=== PATIENT | female | born 1975 | race Caucasian/White ===

== ENCOUNTER 2020-09-13 08:50 | Emergency (ER) | payer OTHER, SELFPAY ==
--- NOTE | ~2020-09-13 | XR_ITS ---
EXAMINATION: XR elbow RT min 3V DATE: 09/13/2020 10:08 INDICATION: Posttraumatic right elbow pain TECHNIQUE: Anteroposterior, two oblique and lateral views of the right elbow were obtained. COMPARISON: None. FINDINGS: Alignment is normal. No fracture or joint effusion. Mild osteoarthritis at the right elbow with sligh t nonuniform joint space narrowing and tiny marginal osteophytes. Soft tissues are unremarkable. IMPRESSION: 1. No right elbow joint effusion or acute osseous abnormality. Reviewed, dictated and finalized at location A.
[2020-09-13 08:55] VITALS: BP 144/98; PULSE 72; RESP 18; TEMP 36.7; O2SAT 100
[2020-09-13 08:59] VITALS: BP 138/95; PULSE 100; RESP 16; O2SAT 99
[2020-09-13] MEDS: HYDROcodone/acetaminophen (*CRX) 5-325 MG TABLET 1 TAB PO (10:08)
--- NOTE | 2020-09-13 10:40 | ED.GENADULT ---
HPI - General Adult General Chief complaint: Extremity Injury, Upper Stated complaint: elbow injury Time Seen by Provider: 09/13/20 09:01 Source: patient and RN notes reviewed Mode of arrival: ambulatory Limitations: no limitations History of Present Illness HPI narrative: Patient is a 44-year-old female who presents to emergency department for evaluation of right elbow injury she struck the elbow this morning on a [place] countertop noting aching pain to the lateral aspect that radiates down the arm patient has not taken anything for her symptoms denies other injuries or complaints Related Data Allergies Allergy/AdvReac Type Severity Reaction Status Date / Time ioversol Allergy Unknown Unknown Verified 09/13/20 09:02 Penicillins Allergy Unknown Unknown Verified 09/13/20 09:02 Sulfa (Sulfonamide Allergy Unknown Numbness Verified 09/13/20 09:02 Antibiotics) SHELLFISH Allergy Intermediate NUASEA,ITCH Uncoded 06/10/18 12:42 ING Contrast Media Allergy Mild XRAY DYE Uncoded 06/10/18 12:42 Review of Systems Review of Systems: All systems reviewed & are unremarkable except as noted in HPI and below PMFSH Past Medical History Medical History (Updated 09/13/20 @ 10:43 by Juan José Hoover PA-C) Narcolepsy Family History Family History (Updated 06/17/18 @ 14:59 by DOCTOR UNKNOWN) Grandparent Family history of thyroid disease Hypertension Family history of Alzheimer's disease Father Hypertension Other Carcinoma of colon Diabetes mellitus Family history of arthritis Family history of atrial fibrillation Family history of cardiovascular disease Family history of kidney disease Family history of lung disease Family history of mental disorder Family history of osteoporosis Social History Social History Smoking status: Never smoker Alcohol intake: current Exam Narrative: Exam Narrative: GENERAL: Well-appearing, well-nourished, and in no acute distress. HEAD: Normocephalic, atraumatic. EYES: PERRLA and EOMI. ENT: Nares clear, no rhinorrhea or epistaxis. Mucous membranes moist. CHEST: Clear to auscultation. No respiratory distress. No wheezes rales or rhonchi HEART: Regular rate and rhythm. No murmur heard. Normal peripheral pulses. EXTREMITIES: Tenderness of the lateral aspect of the right elbow no deformity noted SKIN: Warm, dry, no rash. NEURO: No focal deficits. Alert and oriented x3. Neurovascularly intact PSYCH: Normal mood and affect. Course Course Emergency Course: Patient in the room no distress aware of case findings treatment plan and diagnosis felt appropriate for outpatient reevaluation agreeing to follow-up as instructed Vital Signs Vital signs: Vital Signs Temperature 98.1 F 09/13/20 08:55 Pulse Rate 72 09/13/20 08:55 Respiratory Rate 18 09/13/20 08:55 Blood Pressure 144/98 H 09/13/20 08:55 Pulse Oximetry 100 09/13/20 08:55 Temperature 98.1 F 09/13/20 08:55 Pulse Rate 100 09/13/20 08:59 Respiratory Rate 16 09/13/20 08:59 Blood Pressure 138/95 H 09/13/20 08:59 Pulse Oximetry 99 09/13/20 08:59 Medical Decision Making MDM Narrative Medical decision making narrative: Patients injury or pain is consistent with musculoskeletal etiology. No signs of neurological or vascular compromise on exam. Compartments and tisues are soft without signs of compartment syndrome. Pain is felt appropriate for further evaluation on an outpatient basis. Vital Signs Vital Signs: Vital Signs Temperature 98.1 F 09/13/20 08:55 Pulse Rate 72 09/13/20 08:55 Respiratory Rate 18 09/13/20 08:55 Blood Pressure 144/98 H 09/13/20 08:55 Pulse Oximetry 100 09/13/20 08:55 Temperature 98.1 F 09/13/20 08:55 Pulse Rate 100 09/13/20 08:59 Respiratory Rate 16 09/13/20 08:59 Blood Pressure 138/95 H 09/13/20 08:59 Pulse Oximetry 99 09/13/20 08:59 Imaging Data Radiologist's imp
[2020-09-13 11:03] VITALS: BP 151/109; PULSE 83; RESP 16; O2SAT 99
== END 2020-09-13 11:02 | disposition home or self-care (01) ==
PROVIDERS: Emergency Provider Emergency Medicine; PCP Internal Medicine
DX: S59.901A Unspecified injury of right elbow, initial encounter (principal); W22.09XA Striking against other stationary object, initial encounter
CPT/HCPCS: 73080; 99283; A9270

== ENCOUNTER 2021-01-12 15:57 | Outpatient (CLI) | payer OTHER, SELFPAY ==
--- NOTE | ~2021-01-12 | MM_ITS ---
EXAMINATION: MM screening [facility] BI w rafael HISTORY: Screening mammogram TECHNIQUE: Craniocaudal and mediolateral oblique 3-D tomosynthesis images were obtained and synthetic 2-D images were generated. CAD analysis was submitted and interpreted. COMPARISON: 11/18/2015 bilateral digital screening mammogram BREAST PARENCHYMAL COMPOSITION: There are scattered areas of fibroglandular density. FINDINGS: There is no evidence of suspicious mass, calcification, or architectural distortion to sugg est malignancy in either breast. There has been no suspicious interval change. IMPRESSION: 1. No mammographic evidence of malignancy. 2. Recommend routine screening mammography in one year. BI-RADS Category 1: Negative Reviewed, dictated and finalized at location A.
== END 2021-01-12 15:58 | disposition home or self-care (01) ==
LOC: ANHIMG 15:58
PROVIDERS: PCP Internal Medicine; Visit Provider Obstetrics & Gynecology
DX: Z12.31 Encounter for screening mammogram for malignant neoplasm of breast (principal)
CPT/HCPCS: 77063; 77067

== ENCOUNTER 2021-04-09 14:45 | Outpatient (CLI) | payer OTHER, SELFPAY ==
[2021-04-09 15:11] LABS: Hematocrit 43.5 % (37.0-47.0); Hemoglobin 14.8 g/dL (12.0-15.0)
== END 2021-04-09 14:46 | disposition home or self-care (01) ==
LOC: ANHSURGERY 14:48
PROVIDERS: Anesthesiology; PCP Internal Medicine; Visit Provider Podiatrist Foot & Ankle Surgery
DX: D64.9 Anemia, unspecified (principal); Z01.818 Encounter for other preprocedural examination
CPT/HCPCS: 36415; 85014; 85018

== ENCOUNTER 2021-04-13 00:55 | Day surgery (SDC) | payer OTHER, SELFPAY ==
[2021-04-09 12:00] VITALS: BMI 32.5
--- NOTE | 2021-04-09 12:12 | PC.NURSE ---
Report to the Outpatient Waiting Room, entrance under the green pavilion located off [address], at time 6:00 on date 04/13/21. OR Time: 7:30. - You will be asked a series of questions to screen for COVID 19 for your protection. - A mask is required within the hospital. - No visitors are allowed at this time. Preoperative COVID Testing Requirements: No COVID Test needed if: (proof is required; if not received patient will have Rapid Test prior to entry) - Patient has received COVID Vaccine at least 14 days prior to procedure date or - Patient has positive COVID test result within last 90 days of surgery date. COVID Test needed if above criteria is not met Patients may have clear liquids (water, carbonated beverages, clear teas, apple juice) until 3 hours prior to surgery (4:30) with a maximum of 20 ounces. - No food from midnight until time of surgery Take the following medications with a SIP of water the morning of surgery: TOPIRAMATE, VENLAFAXINE Medications to discontinue per physician: VITAMINS/SUPPLEMENTS Date to take last dose: 04/09/21 Please no make-up, nail wolof, hairspray, perfume, deodorant, or body powder the day of surgery. No jewelry (including any body piercings) or valuables the day of surgery, leave them at home. Please take a shower or bath the night before, or the morning of, surgery with an antibacterial soap. Wear comfortable, loose fitting clothing. - Jewelry must be removed prior to entering the operating room. Rings and piercings that are not removed may be cut off. - The hospital will not accept responsibility for valuables. - Please leave all valuables, including medications, at home the day of surgery. If you are going home after surgery, a licensed owner operator tanker truck driver must drive you home. - NO public transportation without another adult. - We recommend that an adult stay with you for 24 hours following discharge. - We also recommend that you do not drive, make important decision, drink alcoholic beverages, or take any drugs that were not prescribed by your health care provider for at least 24 hours after your discharge time. Follow any additional instructions given to you from your surgeon. Telephone instructions given to ANNE WILBURN and asked if any additional questions and then verbalized understanding. Patient advised to call surgeon office or pre surgery nurse liaison [phone] if any additional questions.
--- NOTE | 2021-04-13 06:43 | WPDANESEPPF ---
Anes - Initial Pre Proc Eval Procedure: Operation Date: 04/13/21 07:30 Proposed Procedures p Excision of Enriquez's Neuroma Right foot - Kalin Turner JR, MD Date/Time: 04/13/21 06:43 Surgeon: Kalin Turner JR, MD Pre Op Diagnosis: painful enriquez's neuroma right foot Patient Data Age: 45 Gender: F Height: 1.63 m Weight: 86.18 kg Allergies Allergy/AdvReac Type Severity Reaction Status Date / Time ioversol Allergy Unknown Hives Verified 04/13/21 06:21 Penicillins Allergy Unknown Unknown Verified 04/13/21 06:21 Sulfa (Sulfonamide Allergy Unknown Numbness Verified 04/13/21 06:21 Antibiotics) SHELLFISH Allergy Intermediate NUASEA,ITCH Uncoded 04/13/21 06:21 ING Contrast Media Allergy Mild XRAY DYE Uncoded 04/13/21 06:21 Home Medications Medication Instructions Recorded Confirmed Type cetirizine [Zyrtec] 10 mg PO DAILY 04/09/21 04/13/21 History cholecalciferol (vitamin D3) 25 mcg PO DAILY 04/09/21 04/13/21 History [Vitamin D3] ferrous sulfate [Iron (ferrous 325 mg PO DAILY 04/09/21 04/13/21 History sulfate)] methylphenidate HCl 10 mg PO TID 04/09/21 04/13/21 History modafinil 200 mg PO BID 04/09/21 04/13/21 History topiramate 50 mg PO DAILY 04/09/21 04/13/21 History venlafaxine 112.5 mg PO DAILY 04/09/21 04/13/21 History vitamin B complex 1 tablet PO DAILY 04/09/21 04/13/21 History Patient hx anesthesia problems: none Family hx anesthesia problems: none Results Review: All pre-operative results and documents have been reviewed as part of the pre-operative evaluation. [facility] Past Medical History Medical History (Updated 04/13/21 @ 06:43 by Bacilio Jernigan MD) Narcolepsy Obesity Surgical History Surgical History (Updated 04/13/21 @ 06:43 by Bacilio Jernigan MD) S/P gastric sleeve procedure Family History Family History Grandparent Family history of thyroid disease Hypertension Family history of Alzheimer's disease Father Hypertension Other Carcinoma of colon Diabetes mellitus Family history of arthritis Family history of atrial fibrillation Family history of cardiovascular disease Family history of kidney disease Family history of lung disease Family history of mental disorder Family history of osteoporosis Social History Social History Years smoked: 10 Smoking status: Former smoker Tobacco type: cigarettes Smoking end date: 03/24/12 Alcohol intake: current Drinks per week: 14 Alcohol use details: A COUPLE GLASSES OF WINE A NIGHT Substance use: never Substance use type: does not use Living arrangements: with family Spiritual care concerns: No Anes - Eval Final PreProcedure Day of Procedure 04/13/21 06:43 Patient weight: obese Heart: regular rate and rhythm Lungs: clear to auscultation Airway: Mallampati scale class 1 Neurological: alert and oriented Last oral intake: >/= 8 hours ASA classification: II Emergent: no Anesthetic plan: proceed Anesthesia type and monitoring: general GIVS and standard monitoring Results Review: All pre-operative results and documents have been reviewed as part of the pre-operative evaluation. Informed Consent: The patient's anesthetic plan and its attendant risks and benefits were discussed with the patient/family/POA. Questions were solicited and answers provided to the satisfaction of the patient/family/POA.
[2021-04-13 07:13] VITALS: BP 141/94; PULSE 72; RESP 16; TEMP 36.7; O2SAT 99
[2021-04-13] MEDS: LACTATED RINGERS 1,000 ML 30 ML IV CONT (07:15)
--- NOTE | 2021-04-13 07:24 | WPDHPUPDATE1 ---
History and Physical Update Update Date/Time: 04/13/21 07:24 History and Physical has been reviewed, including an updated exam of the patient. There are NO changes in the patient's condition. Risks, benefits, and alternatives have been discussed and questions answered. Patient agrees to proceed with procedure.
[2021-04-13] MEDS: ceFAZolin 2 GM/D5W 50 ML 2 GM/50 ML BAG IVPB (07:26)
[2021-04-13] MEDS: LIDOCAINE HCL 2% PF INJ 5 ML VIAL 20 ML INFILTRATE (07:45)
[2021-04-13 08:00] VITALS: BP 133/90; PULSE 72; RESP 18; O2SAT 100
--- NOTE | 2021-04-13 08:03 | W.PM.PROC2 ---
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 A pneumatic ankle tourniquet was placed about the patient's right ankle. Following MAC IV sedation local anesthesia was obtained about the right lower extremity utilizing 20 mL of a 0.5 Marcaine plain and 2% Lidocaine plain in a ring block about the ankle. The foot was then scrubbed, prepped, and draped in the usual aseptic manner. An Esmarch bandage was then used to exsanguinate the patient's foot and the pneumatic ankle tourniquet was then inflated. An incision was made along the dorsal 3rd intermetarsal space. All bleeders were cauterized as necessary. The Deep transverse intermetatarsal ligament was severed. Next Dissection was continued deep to the plantar nerve which was hypertrophied and amorphous. It was dissected proximal to the central metatarsal shaft area and transected next the distal branches were dissected and transected to the affected third and fourth digits. The neural tissue was sent for gross and histo. The subcutaneous tissue was reapproximated with 4.0 Vicryl and the skin was reapproximated with 4.0 Monocryl in running subcuticular fashion technique. Upon completion of the procedure, the dorsal incision was dressed with Steri-Strips, Adaptic, 4x4s, Kerlix, and Coban. The pneumatic ankle tourniquet was then deflated and a prompt hyperemic response was noted to all digits of the right foot. The surgical shoe was then applied. The patient did very well with the procedure and the anesthesia. She was transferred to the recovery room with vital signs stable and vascular status intact to all toes of the affected foot. Following a period of postoperative monitoring, the patient will be discharged home on the following written and oral postoperative instructions: 1. The patient should keep the dressing clean, dry, and intact. Use a cast protector bag with showers. 2. The patient will be strictly protected weight bearing with a surgical shoe. 3. Patient should ice and elevate the right foot when at rest. 4. The patient is to contact Dr. Turner for all postop care and if any problems arise. 5. Prescriptions were written for Percocet 5/325 dispensed 40 to be taken 1 p.o. q.4-6 hours as needed for severe pain. Estimated Blood Loss 1 Drains No Packing No Pathology yes Complications No immediate complications Condition stable Disposition same day
[2021-04-13 08:30] VITALS: BP 135/85; PULSE 78; RESP 20
[2021-04-13 09:00] VITALS: BP 140/90; PULSE 68; RESP 20
== END 2021-04-13 09:40 | disposition home or self-care (01) ==
PROVIDERS: PCP Internal Medicine; Visit Provider Podiatrist Foot & Ankle Surgery
PROC: (CPT 28080; principal; 2021-04-13 07:30)
DX: G57.61 Lesion of plantar nerve, right lower limb (principal); M25.571 Pain in right ankle and joints of right foot; R20.2 Paresthesia of skin; G47.419 Narcolepsy without cataplexy; Z98.84 Bariatric surgery status; Z87.891 Personal history of nicotine dependence; E66.9 Obesity, unspecified; Z68.35 Body mass index [BMI] 35.0-35.9, adult
CPT/HCPCS: 28080; 36415; 85014; 85018; 88304; J0690; J2250; J2704; J3010; J7120

== ENCOUNTER 2022-05-17 15:10 | Emergency (ER) | payer OTHER, SELFPAY ==
[2022-05-17 15:28] VITALS: BP 147/84; PULSE 96; RESP 20; TEMP 36.6; O2SAT 99
--- NOTE | 2022-05-17 16:13 | ED.BACK ---
HPI - Back Pain/Injury General Chief Complaint: Back Pain/Injury Stated Complaint: Back Pain Time Seen by Provider: 05/17/22 16:13 Source: patient, RN notes reviewed and old records reviewed Mode of arrival: ambulatory Limitations: no limitations History of Present Illness HPI Narrative: 46-year-old female presents to the [facility] with complaints of right lower back pain. Patient states she was putting tile down the floor and was on the last piece when she tried lifting the washing machine last night. Patient reports feeling a pull in her lower back. Contacted primary care provider who already called her in some Flexeril. No trauma to the area. Pain is worse with movement and palpation. No midline tenderness. No loss retention of bowel or bladder. No saddle anesthesia. Moving all extremities well. Reports intermittent numbness it travels down the side of her leg into her little toe. No bruising, swelling noted. No erythema or rash noted Related Data Home Medications Medication Instructions Recorded Confirmed cetirizine 10 mg tablet (Zyrtec) 10 mg PO DAILY 04/09/21 04/13/21 cholecalciferol (vitamin D3) 25 25 mcg PO DAILY 04/09/21 04/13/21 mcg (1,000 unit) chewable tablet (Vitamin D3) ferrous sulfate 325 mg (65 mg 325 mg PO DAILY 04/09/21 04/13/21 iron) tablet (Iron (ferrous sulfate)) modafinil 200 mg tablet 200 mg PO BID 04/09/21 04/13/21 topiramate 50 mg tablet 50 mg PO DAILY 04/09/21 04/13/21 venlafaxine 37.5 mg 112.5 mg PO DAILY 04/09/21 04/13/21 capsule,extended release 24 hr vitamin B complex 1 tablet PO DAILY 04/09/21 04/13/21 cyclobenzaprine 5 mg tablet mg 05/17/22 dextroamphetamine-amphetamine 20 05/17/22 mg tablet Allergies Allergy/AdvReac Type Severity Reaction Status Date / Time ioversol Allergy Unknown Hives Verified 05/17/22 15:44 Penicillins Allergy Unknown Unknown Verified 05/17/22 15:44 Sulfa (Sulfonamide Allergy Unknown Numbness Verified 05/17/22 15:44 Antibiotics) SHELLFISH Allergy Intermediate NUASEA,ITCH Uncoded 05/17/22 15:44 ING Contrast Media Allergy Mild XRAY DYE Uncoded 05/17/22 15:44 Review of Systems Review of Systems: All systems reviewed & are unremarkable except as noted in HPI and below Constitutional: Constitutional: Reports no additional constitutional complaints Eyes: Eyes: Reports no additional eye complaints ENT: Reports system reviewed and no additional complaints, except as documented Cardiovascular: Cardiovascular: Reports no additional cardiovascular complaints, Denies chest pain and Denies dyspnea Respiratory: Respiratory: Reports no additional respiratory complaints, Denies chest congestion, Denies cough and Denies dyspnea Gastrointestinal: Gastrointestinal: Reports no additional gastrointestinal complaints, Denies abdominal pain, Denies nausea and Denies vomiting Musculoskeletal: Musculoskeletal: Reports as per HPI and Reports back pain Integumentary/Breasts: Skin/Breast: Reports system reviewed and no additional complaints, except as docu Neurologic: Reports system reviewed and no additional complaints, except as documented Psychiatric: Psychiatric: Reports no additional psychiatric complaints Allergic/Immunologic: Allergic/Immunologic: Reports no additional allergic/immunologic complaints PMFSH Past Medical History Medical History Narcolepsy Obesity Surgical History Surgical History S/P gastric sleeve procedure Family History Family History Grandparent Family history of thyroid disease Hypertension Family history of Alzheimer's disease Father Hypertension Other Carcinoma of colon Diabetes mellitus Family history of arthritis Family history of atrial fibrillation Family history of cardiovascular disease Family history of kidney disease Fami
[2022-05-17] MEDS: TRIAMCINOLONE ACET INJ 40 MG/ML VIAL IM (16:32)
== END 2022-05-17 16:58 | disposition home or self-care (01) ==
PROVIDERS: Emergency Provider Nurse Practitioner; PCP Internal Medicine
DX: S39.012A Strain of muscle, fascia and tendon of lower back, initial encounter (principal); M54.31 Sciatica, right side; T14.90XA Injury, unspecified, initial encounter; E66.9 Obesity, unspecified; Z68.38 Body mass index [BMI] 38.0-38.9, adult; Z87.891 Personal history of nicotine dependence
CPT/HCPCS: 96372; 99213; G0463; J3301

== ENCOUNTER 2023-01-22 10:29 | Outpatient (CLI) | payer OTHER, SELFPAY ==
--- NOTE | ~2023-01-22 | MM_ITS ---
EXAMINATION: MM screening [facility] BI w rafael HISTORY: Screening mammogram TECHNIQUE: Craniocaudal and mediolateral oblique 3-D tomosynthesis images were obtained and synthetic 2-D images were generated. CAD analysis was submitted and interpreted. COMPARISON: 01/12/2021, 11/18/2015 BREAST PARENCHYMAL COMPOSITION: There are scattered areas of fibroglandular density. FINDINGS: No suspicious mass, calcification, or architectural distortion are identified in either dick ast to suggest malignancy. There has been no suspicious interval change. IMPRESSION: 1. No mammographic evidence of malignancy. 2. Recommend routine screening mammography in one year. BI-RADS Category 1: Negative Reviewed, dictated and finalized at location A.
== END 2023-01-22 10:30 | disposition home or self-care (01) ==
LOC: CHSIMG 10:31
PROVIDERS: PCP Internal Medicine; Visit Provider Obstetrics & Gynecology
DX: Z12.31 Encounter for screening mammogram for malignant neoplasm of breast (principal)
CPT/HCPCS: 77063; 77067

== ENCOUNTER 2023-05-22 18:52 | Emergency (ER) | payer SELFPAY ==
[2023-05-22 19:02] VITALS: BP 136/99; PULSE 101; RESP 18; TEMP 36.2
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
== END 2023-05-22 20:04 | disposition home or self-care (01) ==
PROVIDERS: Emergency Provider Nurse Practitioner; PCP Internal Medicine
DX: T23.162A Burn of first degree of back of left hand, initial encounter (principal); T23.132A Burn of first degree of multiple left fingers (nail), not including thumb, initial encounter; X12.XXXA Contact with other hot fluids, initial encounter; Z87.891 Personal history of nicotine dependence; G47.419 Narcolepsy without cataplexy; E66.9 Obesity, unspecified; Z68.34 Body mass index [BMI] 34.0-34.9, adult
CPT/HCPCS: 99212; G0463

== ENCOUNTER 2023-08-04 11:43 | Outpatient (CLI) | payer OTHER, SELFPAY ==
[2023-08-04 12:35] LABS: Hematocrit 43.3 % (37.0-47.0); Hemoglobin 14.5 g/dL (12.0-15.0); Mean Corpuscular HGB Conc 33.5 g/dl (32-36); Mean Corpuscular Hemoglobin 33.5 pg (26-34); Mean Platelet Volume 9.2 fl (7.4-10.4); Platelet Count Result 315 k/mm3 (150-375); Red Blood Count 4.33 M/mm3 (4.2-5.4); Red Cell Distribution Width 12.9 % (11.5-14.5); White Blood Count 6.8 K/mm3 (4.5-10.0)
[2023-08-04 12:45] LABS: Albumin Level 4.6 g/dL (3.5-5.1); Anion Gap 11 mmol/L (4-12); Blood Urea Nitrogen 12 mg/dL (7-17); Calcium 9.4 mg/dL (8.4-10.2); Carbon Dioxide 24 mmol/L (22-30); Chloride 102 mmol/L (98-107); Estimated Glomerular Filt Rate > 60; Glucose 105 mg/dL (65-110); Potassium 3.5 mmol/L (3.4-5.0); Sodium 137 mmol/L (137-145)
[2023-08-04 12:52] LABS: Prealbumin 31.7 mg/dL (17.6-36.0)
[2023-08-04 13:14] LABS: Iron 132 ug/dL (37-170)
[2023-08-07 01:44] LABS: Vitamin B1 13 nmol/L (8-30)
== END 2023-08-04 11:44 | disposition home or self-care (01) ==
LOC: ANHLAB 11:45
PROVIDERS: PCP Internal Medicine; Visit Provider Surgery Plastic and Reconstructive Surgery
DX: R63.4 Abnormal weight loss (principal)
CPT/HCPCS: 36415; 80048; 82040; 83540; 84134; 84425; 85027

== ENCOUNTER 2023-08-29 13:03 | Outpatient (CLI) | payer OTHER, SELFPAY ==
--- NOTE | 2023-08-29 13:00 | ECG_ITS ---
[facility] [address] Test Date: 2023-08-29 Pat Name: Alan Steen Department: Room: Gender: F [employer]line [employer] Pilot: : 1975 Requested By: Shady Guevraa Order Number: [id number] Lay MD: Kevin Han M.D. Measurements Intervals [place] Rate: 98 P: 49 [place]: 151 QRS: -11 QRSD: 89 T: 21 QT: 339 QTc: 434 Interpretive Statements SINUS RHYTHM WITHIN NORMAL LIMITS No previous ECG available for comparison Electronically Signed On 08-30-2023 07:51:55 CDT by Kevin Han M.D.
== END 2023-08-29 13:04 | disposition home or self-care (01) ==
LOC: ANHSURGERY 13:10
PROVIDERS: PCP Internal Medicine; Visit Provider Surgery Plastic and Reconstructive Surgery
DX: Z41.1 Encounter for cosmetic surgery (principal)
CPT/HCPCS: 93005

== ENCOUNTER 2023-09-04 03:10 | Day surgery (SDC) | payer OTHER, SELFPAY ==
[2023-08-28 13:39] VITALS: BMI 34.9
--- NOTE | 2023-08-28 13:46 | PC.NURSE ---
Report to the Outpatient Waiting Room, entrance under the green pavilion located off [facility], at time _0600_ on date _[id number]_. Planned Procedure Time: _0730_. Time changes happen often and if your time is changed the preop area will call you the afternoon before. - You and your visitor will be asked to self-screen and do not enter if you have any COVID symptoms. - A mask is optional within the hospital at this time. Patients may have clear liquids (water, carbonated beverages, clear teas, apple juice) until 3 hours prior to surgery with a maximum of 20 ounces. - No food from midnight until time of surgery Take the following medications with a SIP of water the morning of surgery: ___Venlafaxine DO NOT STOP ANY OF YOUR OTHER PRESCRIPTION MEDICATIONS PRIOR TO SURGERY ?EXCEPT THE FOLLOWING Medications to discontinue per physician Vitamins Date to take last mpys___[phone] Please no make-up, nail lao, hairspray, perfume, deodorant, or body powder the day of surgery. No jewelry (including any body piercings) or valuables the day of surgery, leave them at home. Please take a shower or bath the night before, or the morning of, surgery with an antibacterial soap. Wear comfortable, loose fitting clothing. - Jewelry must be removed prior to entering the operating room. Rings and piercings that are not removed may be cut off. - The hospital will not accept responsibility for valuables. - Please leave all valuables, including medications, at home the day of surgery. If you are going home after surgery, a licensed spotter driver must drive you home. - NO public transportation without another adult if you receive anesthesia. - We recommend that an adult stay with you for 24 hours following discharge. - We also recommend that you do not drive, make important decision, drink alcoholic beverages, or take any drugs that were not prescribed by your health care provider for at least 24 hours after your discharge time. Follow any additional instructions given to you from your surgeon. If you or anyone in your household have experienced Covid symptoms in the past week, please notify your surgeon or the nurse liaison at the phone number below for possible testing. Telephone instructions given to __Alan__and asked if any additional questions and then verbalized understanding. Patient advised to call surgeon office or pre surgery nurse liaison [phone] if any additional questions.
[2023-09-04] VITALS (10 sets, daily range): BP systolic 128–148; BP diastolic 86–97; PULSE 90–110; RESP 14–18; TEMP 36.1–36.4; O2SAT 93–100; BMI 35.7
[2023-09-04 06:33] LABS: Urine Cotinine NEGATIVE
--- NOTE | 2023-09-04 07:14 | WPDHPUPDATE1 ---
History and Physical Update Update Date/Time: 09/04/23 07:14 History and Physical has been reviewed, including an updated exam of the patient. There are NO changes in the patient's condition. Risks, benefits, and alternatives have been discussed and questions answered. Patient agrees to proceed with procedure.
--- NOTE | 2023-09-04 07:14 | W.PM.PROC2 ---
Procedure Note - Detailed Date of Procedure 09/04/23 Pre-op Diagnosis Skin Laxity Post-op Diagnosis Same Procedure Performed 1. Belt lipectomy with suction lipectomy 2. Right superior / lateral thigh suction lipectomy Surgeon Seth Shea MD Anesthesia General Findings Tissue removed: 2755.7 grams Lipoaspirate: 2850 cc Description of Procedure They are here today for the above procedures. Previously and again today the risks, benefits, alternatives were discussed in extensive detail. I wanted them to be very realistic about the risks involved as well as expectations. We discussed aftercare and what to monitor for. I was very upfront about the risks of wound breakdown leading to loss of skin, open wounds, and need for additional procedures with permanent abdominal deformity. We discussed DVT/PE risks and management. Made sure answered all of their questions to their satisfaction today and consent was obtained. They were marked in the preoperative holding area with their verification. The patient was taken to the operating room. Anesthesia was provided by anesthesiology. A Kaye catheter was started. Posterior Placed prone on the operating room table with care taken to protect from injury. Prepped and draped in a standard sterile fashion. A surgical time-out was taken. Stab incisions were made and tumescent solution was infiltrated. Once adequate time was allowed for hemostasis a 5mm basket and 3mm multi hole cannula were utilized to complete suction lipectomy based on S.A.F.E. technique in multiple planes and passes. Suction lipectomy continued to result based on pre-operative planning, intra-operative observation, and rolling pinch test which were in full agreement. A 10 blade was used to make the upper incision and dissection was continued inferior elevating what we necessary for closure. I placed patient in slight jackknife position and excised intervening tissue. This was closed with 3 point suture with 2-0 Vicryl followed 2-0 PDO strattafix, 3-0 stratafix ,running subcuticular 4-0 Monocryl, and tissue glue. Laterally jarrod were placed for turning. Abdomen I placed the patient in a flexed position to verify the upper and lower markings would reach. I then placed supine. A thorough abdominal examination was completed. Stab incisions were made and tumescent solution infiltrated. Stab incisions were made and tumescent solution was infiltrated. Once adequate time was allowed for hemostasis a 5mm basket and 3mm multi hole cannula were utilized to complete suction lipectomy based on S.A.F.E. technique in multiple planes and passes. Suction lipectomy continued to result based on pre-operative planning, intra-operative observation, and rolling pinch test which were in full agreement. Right Thigh A 5mm basket and 3mm multi hole cannula were utilized to complete suction lipectomy based on S.A.F.E. technique in multiple planes and passes. Suction lipectomy continued to result based on pre-operative planning, intra-operative observation, and rolling pinch test which were in full agreement. Abdomen Continued A 10 blade was used to make the upper incision. I continued dissection down to the level of fascia. Elevated just what was necessary for repair of the diastasis. I then again flexed the bed to verify the upper skin flap would reach the lower markings without tension. Once verified I placed her supine once again and a 10 blade used to make the lower incision. I elevated up to level the umbilicus and left the umbilicus intact on a well-vascularized stalk. The intervening tissue was removed. A 2 mm blunt cannula with 0.5% bupivacaine was injected deep to the fascia bilaterally. I plicated the diastasis recti using 0 PDO Stratafix barbed suture. This was in 2 separate layers using 2 separate sutures as well. I also repaired lateral to the rectus using two layers of 0 PDO Stratafix. After the patient was flexed (b
--- NOTE | 2023-09-04 07:16 | WPDANESEPPF ---
Anes - Initial Pre Proc Eval Procedure: Operation Date: 09/04/23 07:30 Proposed Procedures p Belt Lipectomy with Liposuction - Seth Shea MD s Right Upper Thigh Liposuction - Seth Shea MD Date/Time: 09/04/23 07:16 Surgeon: Seth Shea MD Pre Op Diagnosis: Skin Laxity Patient Data Age: 47 Gender: F Height: 1.6 m Weight: 91.5 kg Last Vital Signs Temp 97 F L 09/04/23 06:41 Pulse 90 09/04/23 06:41 Resp 18 09/04/23 06:41 BP 148/91 H 09/04/23 06:41 Pulse Ox 98 09/04/23 06:41 O2 Del Method Room Air 09/04/23 06:41 Allergies Allergy/AdvReac Type Severity Reaction Status Date / Time ioversol Allergy Unknown Hives Verified 09/04/23 06:37 Penicillins Allergy Unknown Unknown Verified 09/04/23 06:37 Sulfa (Sulfonamide Allergy Unknown Numbness Verified 09/04/23 06:37 Antibiotics) SHELLFISH Allergy Intermediate NUASEA,ITCH Uncoded 08/28/23 13:36 ING Contrast Media Allergy Mild XRAY DYE Uncoded 08/28/23 13:36 Home Medications Medication Instructions Recorded Confirmed Type cetirizine 10 mg tablet (Zyrtec) 10 mg PO DAILY 04/09/21 08/28/23 History cholecalciferol (vitamin D3) 25 25 mcg PO DAILY 04/09/21 08/28/23 History mcg (1,000 unit) chewable tablet (Vitamin D3) ferrous sulfate 325 mg (65 mg 325 mg PO DAILY 04/09/21 08/28/23 History iron) tablet (Iron (ferrous sulfate)) modafinil 200 mg tablet 200 mg PO BID 04/09/21 08/28/23 History vitamin B complex 1 tablet PO DAILY 04/09/21 08/28/23 History cyclobenzaprine 5 mg tablet 5 mg PO DAILY 05/17/22 08/28/23 History dextroamphetamine-amphetamine 20 20 mg PO DAILY 05/17/22 08/28/23 History mg tablet venlafaxine 75 mg capsule,extended 225 mg PO DAILY 08/28/23 09/04/23 History release 24 hr Laboratory Tests 09/04/23 06:17 Cotinine Negative Patient hx anesthesia problems: none Family hx anesthesia problems: none Results Review: All pre-operative results and documents have been reviewed as part of the pre-operative evaluation. [facility] Past Medical History Medical History Narcolepsy Obesity Surgical History Surgical History S/P gastric sleeve procedure Family History Family History Grandparent Family history of thyroid disease Hypertension Family history of Alzheimer's disease Father Hypertension Other Carcinoma of colon Diabetes mellitus Family history of arthritis Family history of atrial fibrillation Family history of cardiovascular disease Family history of kidney disease Family history of lung disease Family history of mental disorder Family history of osteoporosis Social History Social History Years smoked: 10 Smoking status: Former smoker Tobacco type: cigarettes Smoking end date: 08/27/02 Alcohol intake: current Drinks per week: 5 Alcohol use details: A COUPLE GLASSES OF WINE A NIGHT Substance use: never Substance use type: does not use Living arrangements: with family Spiritual care concerns: No Anes - Eval Final PreProcedure Day of Procedure 09/04/23 07:16 Patient weight: obese Heart: regular rate and rhythm Lungs: clear to auscultation Airway: Mallampati scale class II Neurological: alert and oriented Last oral intake: >/= 8 hours ASA classification: III Emergent: no Anesthetic plan: proceed Anesthesia type and monitoring: general ETT and standard monitoring Results Review: All pre-operative results and documents have been reviewed as part of the pre-operative evaluation. Informed Consent: The patient's anesthetic plan and its attendant risks and benefits were discussed with the patient/family/POA. Questions were solicited and answers provided to the satisfa
[2023-09-04] MEDS: TRANEXAMIC ACID 1,000MG/ISO100 1,000 MG/100 ML BAG 200 MG IVPB (07:27)
[2023-09-04] MEDS: LACTATED RINGERS 1,000 ML 30 ML IV CONT ×2 (07:30→13:37)
[2023-09-04] MEDS: ceFAZolin 2 GM/D5W 50 ML 2 GM/50 ML BAG IVPB (07:55)
[2023-09-04] MEDS: LACTATED RINGERS IRRIG 1,000 ML, LIDOCAINE HCL 1% LOCAL INJ 50 ML, EPINEPHrine HCL INJ ... INFILTRATE (08:09)
[2023-09-04] MEDS: BUPIVACAINE/EPINEPHRINE 0.5% 50 ML VIAL 60 ML INFILTRATE (09:51)
[2023-09-04] MEDS: ceFAZolin SODIUM 1 GM VIAL 2 GM IV PUSH (11:28)
[2023-09-04] MEDS: fentaNYL CITRATE INJ (*CRX) 100 MCG/2 ML VIAL 25 MCG IV PUSH ×4 (14:24→14:45)
[2023-09-04] MEDS: oxyCODONE HCL (*CRX) 5 MG TAB IR PO (15:37)
== END 2023-09-04 16:17 | disposition home or self-care (01) ==
PROVIDERS: PCP Internal Medicine; Visit Provider Surgery Plastic and Reconstructive Surgery
PROC: (CPT 15830; principal; 2023-09-04 07:30)
PROC: (CPT 15877; 2023-09-04 07:30)
DX: Z41.1 Encounter for cosmetic surgery (principal); L57.4 Cutis laxa senilis; G47.419 Narcolepsy without cataplexy; E66.9 Obesity, unspecified; Z68.35 Body mass index [BMI] 35.0-35.9, adult; Z98.84 Bariatric surgery status; Z87.891 Personal history of nicotine dependence
CPT/HCPCS: 15877; 15830; 15847; 15879; 80307; A9270; J0171; J0690; J1100; J1170; J2250; J2405; J2704; J3010; J7120

== ENCOUNTER 2023-09-14 18:03 | Emergency (ER) | payer SELFPAY ==
--- NOTE | ~2023-09-14 | US_ITS ---
EXAMINATION: US venous doppler LE RT DATE: 09/14/2023 18:35 INDICATION: Right lower limb pain and swelling. TECHNIQUE: Grayscale ultrasound images without and with compression and Doppler ultrasound images of the right lower extremity veins were obtained. COMPARISON: None. FINDINGS: The visualized portions of right common femoral vein, profunda (deep) femoral vein, femoral vein, pop liteal vein, peroneal veins, posterior tibial veins, and greater saphenous vein outflow are patent. IMPRESSION: 1. No deep venous thrombosis. Reviewed, dictated and finalized at location E.
[2023-09-14 18:03] VITALS: BP 137/96; PULSE 109; RESP 18; TEMP 36.4; O2SAT 100
--- NOTE | 2023-09-14 19:52 | PC.NURSE ---
Pt called for room, no answer
== END 2023-09-14 19:52 | disposition left against medical advice (07) ==
LOC: ANHED 19:56
PROVIDERS: Emergency Provider Emergency Medicine; PCP Internal Medicine
DX: M79.604 Pain in right leg (principal)
CPT/HCPCS: 93971; 99199

== ENCOUNTER 2023-09-26 19:01 | Emergency (ER) | payer OTHER, SELFPAY ==
--- NOTE | ~2023-09-26 | CT_ITS ---
EXAMINATION: CT abdomen pelvis wo con DATE: 09/26/2023 23:01 INDICATION: Abdominal wound. TECHNIQUE: Computed tomography (CT) of the abdomen and pelvis was performed without intravenous contr ast. Automated exposure control and iterative reconstruction technique were employed. The dose-length product was 1122.45 mGy-cm. COMPARISON: None. FINDINGS: The visualized portions of the lung bases demonstrate mild atelectasis. No pleural effusion . The heart size is normal. No pericardial effusion. There are changes of gastric bypass procedure. T here is a small sliding hiatal hernia. There is diffuse hepatic steatosis. There are changes of jaylan cystectomy. The spleen, pancreas, adrenal glands, and kidneys are normal. There is no urolithiasis. T here are no dilated loops of bowel. The appendix is normal. There are no pathologically enlarged lymp h nodes. There is no free intraperitoneal fluid. There is widespread subcutaneous fat stranding, cons istent with changes of abdominoplasty. There are subcutaneous fluid collections in the flanks and ant erolateral aspects of the abdomen. The largest measures 13.6 x 5.4 cm in left flank. A collection in right flank measures 7.1 x 3.2 cm. There is an open wound in left lower quadrant. There is mild thora cic and lumbar spondylosis. IMPRESSION: 1. Changes of abdominoplasty with bilateral subcutaneous fluid collections. Reviewed, dictated and finalized at location A.
[2023-09-26 19:07] VITALS: BP 126/81; PULSE 98; RESP 17; TEMP 36.1; O2SAT 99
--- NOTE | 2023-09-26 20:49 | ED.WOUNDLAC ---
HPI - Wound/Laceration General Chief Complaint: Wound/Laceration <Sarina Holman PA-C - Last Filed: 09/27/23 03:39> Stated Complaint: wound dehiss <Sarina Holman PA-C - Last Filed: 09/27/23 03:39> Time Seen by Provider: 09/26/23 20:26 <Sarina Holman PA-C - Last Filed: 09/27/23 03:39> History of Present Illness HPI narrative: 47-year-old female with history of obesity and s/p gastric sleeve procedure as well as most recent s/p Belt lipectomy with suction lipectomy and right superior / lateral thigh suction lipectomy on 09/04/[address] Shea presents to the emergency department for wound dehiscence. Patient states today she was getting out of her car when she heard a pop and noticed an open incision to her left lower quadrant with a gush of blood and fluids. She also notes that she has been had some purulent drainage throughout her abdominal and umbilical incision was started on clindamycin for this. She denies fever, nausea vomiting. She is reporting worsening abdominal pain since the wound dehisced throughout the left lower and right lower quadrants. <Sarina Holman PA-C - Last Filed: 09/27/23 03:39> Related Data Home Medications: Home Medications Medication Instructions Recorded Confirmed cetirizine 10 mg tablet (Zyrtec) 10 mg PO DAILY 04/09/21 08/28/23 cholecalciferol (vitamin D3) 25 25 mcg PO DAILY 04/09/21 08/28/23 mcg (1,000 unit) chewable tablet (Vitamin D3) ferrous sulfate 325 mg (65 mg 325 mg PO DAILY 04/09/21 08/28/23 iron) tablet (Iron (ferrous sulfate)) modafinil 200 mg tablet 200 mg PO BID 04/09/21 08/28/23 vitamin B complex 1 tablet PO DAILY 04/09/21 08/28/23 cyclobenzaprine 5 mg tablet 5 mg PO DAILY 05/17/22 08/28/23 dextroamphetamine-amphetamine 20 20 mg PO DAILY 05/17/22 08/28/23 mg tablet venlafaxine 75 mg capsule,extended 225 mg PO DAILY 08/28/23 09/04/23 release 24 hr <Sarina Holman PA-C - Last Filed: 09/27/23 03:39> Allergies/Adverse Reactions: Allergies Allergy/AdvReac Type Severity Reaction Status Date / Time ioversol Allergy Unknown Hives Verified 09/26/23 19:08 Penicillins Allergy Unknown Unknown Verified 09/26/23 19:08 Sulfa (Sulfonamide Allergy Unknown Numbness Verified 09/26/23 19:08 Antibiotics) SHELLFISH Allergy Intermediate NUASEA,ITCH Uncoded 08/28/23 13:36 ING Contrast Media Allergy Mild XRAY DYE Uncoded 08/28/23 13:36 <Sarina Holman PA-C - Last Filed: 09/27/23 03:39> Review of Systems Review of Systems: CONSTITUTIONAL: Denies fever, chills, or sweats. EYES: Denies visual changes, redness, or discharge. ENT: Denies rhinorrhea, congestion, sore throat, or otalgia. CARDIOVASCULAR: Denies chest pain, palpitations, or edema. RESPIRATORY: Denies cough or dyspnea. GASTROINTESTINAL: See HPI GENITOURINARY: Denies dysuria or hematuria. SKIN: see HPI MUSCULOSKELETAL: Denies back pain, joint pain, or myalgia. NEUROLOGIC: Denies headache, numbness, or weakness. PSYCHIATRIC: Denies anxiety or depression. <Sarina Holman PA-C - Last Filed: 09/27/23 03:39> [facility] Past Medical History Medical History: Medical History Narcolepsy Obesity <Sarina Holman PA-C - Last Filed: 09/27/23 03:39> Surgical History Surgical History: Surgical History S/P gastric sleeve procedure <Sarina Holman PA-C - Last Filed: 09/27/23 03:39> Family History Family History: Family History Grandparent Family history of thyroid disease Hypertension Family history of Alzheimer's disease Father Hypertension Other Carcinoma of colon Diabetes mellitus Family history of arthritis Family history of atrial fibrillation Family history of cardiovascular disease Family history of kidney disease Family histo
[2023-09-26 21:35] LABS: Appearance Urine Clear (Clear); Bacteria Urine None Seen /hpf; Bilirubin Urine Negative (Negative); Blood Urine 2+ (Negative); Color Urine Yellow (Yellow); Glucose Urine UA Negative (Negative); Ketones Urine Negative (Negative); Leukocyte Esterase Ur Negative LEU/UL (Negative); Nitrate Urine Negative (Negative); Non Pathogenic Casts 0-2; Protein Urine Negative (Negative); Specific Grav Ur 1.008 (1.001-1.035); Squamous Epithelial Cell Urine None Seen /hpf (Few); Urobilinogen Urine 0.2 mg/dL (<2.0); WBC Urine 0-5 /hpf (0-3); pH Urine 5.5 (5.0-9.0)
[2023-09-26 21:40] LABS: Add Urine Microscopic? YES
--- NOTE | 2023-09-26 22:03 | PC.NURSE ---
RN attempted x1 left forearm, x2 to right forearm SL. Unsuccessful. Sarina SHUKLA informed
[2023-09-26] MEDS: SODIUM CHLORIDE 0.9% IV 1,000 ML 999 ML IV CONT (22:28)
[2023-09-26] MEDS: MORPHINE SULFATE (*CRX) 4 MG/ML INJ IV PUSH (22:29)
[2023-09-26] MEDS: levoFLOXacin 750 MG/D5W 150 ML 750 MG/150 ML BAG 100 MG IVPB (22:45)
[2023-09-26 22:53] LABS: Lactic Acid Reflex 0.8 mmol/L (0.7-2.0)
[2023-09-26 22:55] LABS: Basophils Percent Auto 0.8 % (0.2-1.2); Eosinophils Absolute Auto 0.4 K/mm3 (0-0.3); Eosinophils Percent Auto 6.8 % (0-4.4); Hemoglobin 8.2 g/dL (12.0-15.0); Immature Granulocyte Absolute 0.03 K/mm3 (0.00-0.031); Immature Granulocyte Percent A 0.6 % (0-0.5); Lymphocytes Absolute Auto 1.15 K/mm3 (0.9-3.2); Lymphocytes Percent Auto 21.8 % (18.3-44.2); Mean Corpuscular HGB Conc 31.5 g/dl (32-36); Mean Corpuscular Hemoglobin 32.4 pg (26-34); Mean Corpuscular Volume 102.8 fl (80-100); Mean Platelet Volume 8.4 fl (7.4-10.4); Monocytes Absolute Auto 0.8 K/mm3 (0.1-0.6); Monocytes Percent Auto 14.4 % (2.6-8.5); Neutrophils Absolute Auto 2.9 K/mm3 (1.3-6.7); Neutrophils Percent Auto 55.6 % (45.5-73.1); Platelet Count Result 426 k/mm3 (150-375); Red Blood Count 2.53 M/mm3 (4.2-5.4); Red Cell Distribution Width 12.6 % (11.5-14.5); White Blood Count 5.3 K/mm3 (4.5-10.0)
[2023-09-26 22:56] LABS: Partial Thromboplastin Time 28.1 Seconds (22.3-36.8)
[2023-09-26 23:01] LABS: Alanine Aminotransferase 13 U/L (6-35); Albumin Level 3.4 g/dL (3.5-5.1); Alkaline Phosphatase 136 U/L (38-126); Anion Gap 10 mmol/L (4-12); Aspartate Amino Transferase 21 U/L (14-36); Bilirubin,Total 0.5 mg/dL (0.2-1.3); Blood Urea Nitrogen 9 mg/dL (7-17); CRP 8.3 mg/dL (<1.0); Calcium 8.9 mg/dL (8.4-10.2); Carbon Dioxide 26 mmol/L (22-30); Chloride 102 mmol/L (98-107); Estimated CRCL calculation 131 ml/min; Estimated Glomerular Filt Rate > 60; Glucose 97 mg/dL (65-110); Potassium 4.2 mmol/L (3.4-5.0); Sodium 138 mmol/L (137-145)
[2023-09-26 23:38] LABS: Erythrocyte Sedimentation Rate > 140 mm/hr (0-20)
[2023-09-27] MEDS: metroNIDAZOLE 500 MG/ISO 100ML 500 MG/100 ML BAG 100 MG IVPB (00:24)
[2023-09-27 01:45] VITALS: BP 142/90; PULSE 94; RESP 15; O2SAT 100
[2023-09-27] MEDS: MORPHINE SULFATE (*CRX) 4 MG/ML INJ IV PUSH (01:46)
[2023-09-27] MEDS: VANCOMYCIN 1,250 MG/NS 250 ML 1,250 MG/250 ML BAG 166.67 MG IVPB (01:54)
[2023-09-27] MEDS: FLUTICASONE PROPIONATE 0.05% NA SPR 16 GM BTL (*BKC) 2 SPRAY NASAL (01:59)
[2023-09-27 03:10] VITALS: BP 132/84; PULSE 90; RESP 15; O2SAT 100
== END 2023-09-27 03:11 | disposition home or self-care (01) ==
PROVIDERS: Emergency Provider Physician Assistant; PCP Internal Medicine
DX: T81.31XA Disruption of external operation (surgical) wound, not elsewhere classified, initial encounter (principal); D53.9 Nutritional anemia, unspecified; E66.9 Obesity, unspecified; Z68.39 Body mass index [BMI] 39.0-39.9, adult; Z98.84 Bariatric surgery status; Z87.891 Personal history of nicotine dependence; Z79.899 Other long term (current) drug therapy
CPT/HCPCS: 36415; 74176; 80053; 81001; 83605; 85025; 85610; 85652; 85730; 86140; 87040; 96361; 96365; 96366; 96367; 96375; 99284; A9270; J1836; J1956; J2270; J3370; J7030

== ENCOUNTER 2023-10-20 13:47 | Outpatient (CLI) | payer OTHER, SELFPAY ==
[2023-10-20 14:54] LABS: Alanine Aminotransferase 17 U/L (6-35); Albumin Level 4.2 g/dL (3.5-5.1); Alkaline Phosphatase 119 U/L (38-126); Anion Gap 11 mmol/L (4-12); Aspartate Amino Transferase 23 U/L (14-36); Bilirubin,Total 0.4 mg/dL (0.2-1.3); Blood Urea Nitrogen 13 mg/dL (7-17); Calcium 8.9 mg/dL (8.4-10.2); Carbon Dioxide 26 mmol/L (22-30); Chloride 101 mmol/L (98-107); Estimated Glomerular Filt Rate > 60; Glucose 95 mg/dL (65-110); Potassium 3.9 mmol/L (3.4-5.0); Sodium 138 mmol/L (137-145)
[2023-10-24 22:33] LABS: Vitamin B1 11 nmol/L (8-30)
== END 2023-10-20 13:48 | disposition home or self-care (01) ==
PROVIDERS: PCP Internal Medicine; Visit Provider Surgery Plastic and Reconstructive Surgery
DX: R63.4 Abnormal weight loss (principal)
CPT/HCPCS: 36415; 80053; 84134; 84425

== ENCOUNTER 2023-10-20 13:52 | Outpatient (CLI) | payer OTHER, SELFPAY ==
[2023-10-20 14:43] LABS: Basophils Percent Auto 0.5 % (0.2-1.2); Eosinophils Absolute Auto 0.2 K/mm3 (0-0.3); Eosinophils Percent Auto 3.6 % (0-4.4); Hematocrit 36.7 % (37.0-47.0); Hemoglobin 11.7 g/dL (12.0-15.0); Immature Granulocyte Absolute 0.01 K/mm3 (0.00-0.031); Immature Granulocyte Percent A 0.2 % (0-0.5); Lymphocytes Absolute Auto 1.32 K/mm3 (0.9-3.2); Lymphocytes Percent Auto 23.4 % (18.3-44.2); Mean Corpuscular HGB Conc 31.9 g/dl (32-36); Mean Corpuscular Volume 103.4 fl (80-100); Mean Platelet Volume 8.5 fl (7.4-10.4); Monocytes Absolute Auto 0.4 K/mm3 (0.1-0.6); Monocytes Percent Auto 6.9 % (2.6-8.5); Neutrophils Absolute Auto 3.7 K/mm3 (1.3-6.7); Neutrophils Percent Auto 65.4 % (45.5-73.1); Platelet Count Result 319 k/mm3 (150-375); Red Blood Count 3.55 M/mm3 (4.2-5.4); Red Cell Distribution Width 14.2 % (11.5-14.5); White Blood Count 5.6 K/mm3 (4.5-10.0)
[2023-10-20 14:55] LABS: Magnesium 1.8 mg/dL (1.6-2.3)
[2023-10-20 15:11] LABS: Iron 183 ug/dL (37-170)
[2023-10-20 15:20] LABS: Percent Iron Saturation 70 % (20-50)
[2023-10-20 15:41] LABS: Vitamin D 25 Hydroxy 40.6 ng/mL
== END 2023-10-20 13:53 | disposition home or self-care (01) ==
LOC: ANHLAB 13:54
PROVIDERS: PCP Internal Medicine
DX: E61.1 Iron deficiency (principal)
CPT/HCPCS: 36415; 82306; 82607; 82728; 83540; 83550; 83735; 84443; 85025

== ENCOUNTER 2023-12-04 13:43 | Outpatient (CLI) | payer OTHER, SELFPAY ==
[2023-12-04 14:31] LABS: Hemoglobin 14.2 g/dL (12.0-15.0); Mean Corpuscular HGB Conc 31.6 g/dl (32-36); Mean Corpuscular Hemoglobin 33.7 pg (26-34); Mean Corpuscular Volume 106.9 fl (80-100); Mean Platelet Volume 8.3 fl (7.4-10.4); Platelet Count Result 225 k/mm3 (150-375); Red Blood Count 4.21 M/mm3 (4.2-5.4); Red Cell Distribution Width 14.8 % (11.5-14.5); White Blood Count 4.4 K/mm3 (4.5-10.0)
[2023-12-04 15:08] LABS: Alanine Aminotransferase 29 U/L (6-35); Alkaline Phosphatase 88 U/L (38-126); Anion Gap 10 mmol/L (4-12); Aspartate Amino Transferase 54 U/L (14-36); Bilirubin,Total 0.3 mg/dL (0.2-1.3); Blood Urea Nitrogen 13 mg/dL (7-17); Calcium 8.8 mg/dL (8.4-10.2); Carbon Dioxide 24 mmol/L (22-30); Chloride 103 mmol/L (98-107); Estimated Glomerular Filt Rate > 60; Glucose 88 mg/dL (65-110); Potassium 3.6 mmol/L (3.4-5.0); Sodium 137 mmol/L (137-145)
[2023-12-04 15:14] LABS: Iron 128 ug/dL (37-170)
== END 2023-12-04 13:44 | disposition home or self-care (01) ==
LOC: ANHLAB 13:46
PROVIDERS: PCP Internal Medicine; Visit Provider Surgery Plastic and Reconstructive Surgery
DX: R63.4 Abnormal weight loss (principal)
CPT/HCPCS: 36415; 80053; 83540; 84134; 84425; 85027

== ENCOUNTER 2023-12-11 01:37 | Day surgery (SDC) | payer OTHER, SELFPAY ==
[2023-12-08 15:15] VITALS: BMI 34.7
--- NOTE | 2023-12-08 15:20 | PC.NURSE ---
Report to the Outpatient Waiting Room, entrance under the green pavilion located off [facility], at time _0600_ on date _[id number]_. Planned Procedure Time: _0730_.? Time changes happen often and if your time is changed the preop area will call you the afternoon before. - You and your visitor will be asked to self-screen and do not enter if you have any COVID symptoms. Please call surgeon if you need to reschedule. - A mask is optional within the hospital at this time. Patients may have clear liquids (water, carbonated beverages, clear teas, apple juice) until 3 hours prior to surgery with a maximum of 20 ounces. - No food from midnight until time of surgery and no smoking Take only the following medications with a SIP of water on the morning of surgery: ___Venlafaxine DO NOT STOP ANY OF YOUR OTHER PRESCRIPTION MEDICATIONS PRIOR TO SURGERY EXCEPT THE FOLLOWING Medications to discontinue per physician ___All vitamins Date to take last dose___Stop today. Please no make-up, nail frisian, hairspray, perfume, deodorant, or body powder the day of surgery.? No jewelry (including any body piercings) or valuables the day of surgery, leave them at home.? Please take a shower or bath the night before, or the morning of, surgery with an antibacterial soap.? Wear comfortable, loose fitting clothing.? - Jewelry must be removed prior to entering the operating room.? Rings and piercings that are not removed may be cut off. - The hospital will not accept responsibility for valuables.? - Please leave all valuables, including medications, at home the day of surgery. If you are going home after surgery, a licensed non cdl driver must drive you home.? - NO public transportation without another adult if you receive anesthesia. - We recommend that an adult stay with you for 24 hours following discharge. - We also recommend that you do not drive, make important decision, drink alcoholic beverages, or take any drugs that were not prescribed by your health care provider for at least 24 hours after your discharge time. Follow any additional instructions given to you from your surgeon. Telephone instructions given to __Alan___and asked if any additional questions and then verbalized understanding. Patient advised to call surgeon office or pre surgery nurse liaison [phone] if any additional questions.
[2023-12-11] VITALS (17 sets, daily range): BP systolic 114–155; BP diastolic 52–91; PULSE 77–105; RESP 12–22; TEMP 36.4–36.8; O2SAT 93–100; BMI 35.4
[2023-12-11 06:49] LABS: Urine Cotinine NEGATIVE
--- NOTE | 2023-12-11 07:02 | WPDHPUPDATE1 ---
History and Physical Update Update Date/Time: 12/11/23 07:02 History and Physical has been reviewed, including an updated exam of the patient. There are NO changes in the patient's condition. Risks, benefits, and alternatives have been discussed and questions answered. Patient agrees to proceed with procedure.
--- NOTE | 2023-12-11 07:02 | W.PM.PROC2 ---
Procedure Note - Detailed Date of Procedure 12/11/23 Pre-op Diagnosis Skin Laxity, Breast Ptosis, Micromastia Post-op Diagnosis Same Procedure Performed Bilateral Augmentation Mastopexy Bilateral Brachioplasty Surgeon Seth Shea MD Anesthesia General Findings Inverted T Superior medial pedicle Bilateral Zoraida Henry SoftTouch 490 Right - REF# [id number] SN [id number] Left - REF# [id number] SN [id number] Lipoaspirate: 2,250 cc Description of Procedure She is here today for the above. Previously and again today the risks, benefits, alternatives were discussed in extensive detail. I wanted her to be very realistic about the risks involved as well as expectations. We discussed aftercare and what to monitor for. Made sure answered all of her questions to her satisfaction today and consent was obtained. Marked in the preoperative holding area with their verification. The patient was taken to the operating room placed supine on the operating table. Anesthesia was provided by anesthesiology. She was prepped and draped in a standard sterile fashion. Breast Stab incisions were made and I tumesced with a tumescent solution laterally. Tegaderm nipple Duque were placed. A 15 blade used to make an incision just superior to the inframammary fold leaving a cusp of de-epithelized tissue at the t junction. Dissection was continued until the chest wall as identified. I incised the pectoralis major along its inferior border and completely released the inferior border leaving the medial border intact. I created a subpectoral pocket in the appropriate dimensions based on our preoperative planning for the implant. I then copiously irrigated with saline solution and verified a strict hemostasis. Next the use a triple antibiotic and Betadine containing solution to irrigate the pocket. I washed my gloves with the triple antibiotic and Betadine solution. We washed the implant immediately upon opening it with this solution and only opened it when we needed it. I used implant funnel and no-touch technique. The implant was introduced into the pocket using the funnel. Having verified positioning of the implant this was closed using 2-0 PDS. I tailor tacked the breast into position. Placed her in a sitting position. Suction lipectomy completed laterally with a 4mm Juhi cannula for contour. I Verified the nipple-areolar location based on preoperative planning as well as intraoperative observations and measurements in full agreement. She was placed supine. I de-epithelialized the pedicle. I then removed the inferior central portion of the breast need making sure the implant was well protected. I elevated medial and lateral tissue flaps as well for planned closure. I closed along the IMF with 2-0 Stratafix. Along the vertical with 2-0 PDS. I closed around the areola with 3-0 strata fix. 3-0 Monocryl along the vertical. 3-0 Stratafix along the IMF. I finally closed everything with running subcuticular 4-0 Monocryl and tissue glue. Arms Stab incisions were made and I tumesced with a tumescent solution. Once adequate time for hemostasis suction lipectomy was with a 4 mm basket cannula based on S.A.F.E. technique. This was completed based on preoperative planning, intraoperative observation, and rolling pinch test which was in full agreement. I completely de-fatted the planned resection area and a strip avulsion technique was completed. Starting proximal to distal a 10 blade was used to excise the intervening skin and this was tacked as we proceed to ensure good closure. This was closed using a 2-0 Quill, 3-0 strata fix, running subcuticular 4-0 Monocryl, and tissue glue. Dressings were placed. Tolerated the procedure well. Taken to the PACU without difficulty. All instrument sponge counts were correct at the end of the case. Estimated Blood Loss 100 Drains No Packing No Pathology None sent Complications No immediate complicatio
--- NOTE | 2023-12-11 07:34 | WPDANESEPPF ---
Anes - Initial Pre Proc Eval Procedure: Operation Date: 12/11/23 07:30 Proposed Procedures p Bilateral Brachioplasty - Seth Shea MD s Bilateral Breast Augmentation with Mastopexy - Seth Shea MD Date/Time: 12/11/23 07:34 Surgeon: Seth Shea MD Pre Op Diagnosis: Skin Laxity, Breast Ptosis, Micromastia Patient Data Age: 48 Gender: F Height: 1.6 m Weight: 90.7 kg Last Vital Signs Temp 97.5 F L 12/11/23 07:05 Pulse 77 12/11/23 07:05 Resp 16 12/11/23 07:05 BP 137/91 H 12/11/23 07:05 Pulse Ox 100 12/11/23 07:05 O2 Del Method Room Air 12/11/23 07:05 Allergies Allergy/AdvReac Type Severity Reaction Status Date / Time ioversol Allergy Unknown Hives Verified 12/11/23 07:03 Penicillins Allergy Unknown Unknown Verified 12/11/23 07:03 Sulfa (Sulfonamide Allergy Unknown Numbness Verified 12/11/23 07:03 Antibiotics) SHELLFISH Allergy Intermediate NUASEA,ITCH Uncoded 12/08/23 15:11 ING Contrast Media Allergy Mild XRAY DYE Uncoded 12/08/23 15:11 Home Medications Medication Instructions Recorded Confirmed Type cetirizine 10 mg tablet (Zyrtec) 10 mg PO DAILY 04/09/21 12/08/23 History cholecalciferol (vitamin D3) 25 25 mcg PO DAILY 04/09/21 12/08/23 History mcg (1,000 unit) chewable tablet (Vitamin D3) ferrous sulfate 325 mg (65 mg 325 mg PO DAILY 04/09/21 12/08/23 History iron) tablet (Iron (ferrous sulfate)) modafinil 200 mg tablet 200 mg PO BID 04/09/21 12/08/23 History vitamin B complex 1 tablet PO DAILY 04/09/21 12/08/23 History dextroamphetamine-amphetamine 20 20 mg PO DAILY 05/17/22 12/08/23 History mg tablet venlafaxine 75 mg capsule,extended 225 mg PO DAILY 08/28/23 12/11/23 History release 24 hr hydrocodone 5 mg-acetaminophen 325 1 tablet PO Q8H PRN pain #14 tabs 09/27/23 12/08/23 Rx mg tablet pseudoephedrine HCl 30 mg tablet 30 mg PO Q4-6H PRN Allergy Symptoms 12/08/23 12/08/23 History (Sudafed) Laboratory Tests 12/11/23 06:21 Cotinine Negative Patient hx anesthesia problems: none Family hx anesthesia problems: none Results Review: All pre-operative results and documents have been reviewed as part of the pre-operative evaluation. [facility]LY [facility] Past Medical History Medical History Narcolepsy Obesity Surgical History Surgical History S/P gastric sleeve procedure Family History Family History Grandparent Family history of thyroid disease Hypertension Family history of Alzheimer's disease Father Hypertension Other Carcinoma of colon Diabetes mellitus Family history of arthritis Family history of atrial fibrillation Family history of cardiovascular disease Family history of kidney disease Family history of lung disease Family history of mental disorder Family history of osteoporosis Social History Social History Years smoked: 10 Smoking status: Never smoker Tobacco type: cigarettes Smoking end date: 08/27/02 Alcohol intake: current Drinks per week: 6 Alcohol use details: A COUPLE GLASSES OF WINE A NIGHT Substance use: never Substance use type: does not use Living arrangements: with family Spiritual care concerns: No Anes - Eval Final PreProcedure Day of Procedure 12/11/23 07:34 Patient weight: obese Heart: regular rate and rhythm Lungs: clear to auscultation Airway: Mallampati scale class II and special considerations (Upper perm bridge. ) Neurological: alert and oriented Last oral intake: >/= 8 hours ASA classification: II Emergent: no Anesthetic plan: proceed Anesthesia type and monitoring: general ETT and standard monitoring Results Review: All pre-operative results and documents have been reviewed as
[2023-12-11] MEDS: LACTATED RINGERS 1,000 ML 30 ML IV CONT ×3 (07:36→15:05)
[2023-12-11] MEDS: ceFAZolin 2 GM/D5W 50 ML 2 GM/50 ML BAG IVPB (07:39)
[2023-12-11] MEDS: TRANEXAMIC ACID 1,000MG/ISO100 1,000 MG/100 ML BAG 200 MG IVPB (07:50)
[2023-12-11] MEDS: LACTATED RINGERS IRRIG 1,000 ML, LIDOCAINE HCL 1% LOCAL INJ 50 ML, EPINEPHrine HCL INJ ... INFILTRATE (08:42)
[2023-12-11] MEDS: NACL 0.9% IRRIG POUR BOTTLE 900 ML, GENTAMICIN SULFATE INJ 160 MG, CLINDAMYCIN PHOS INJ... IRRIGATION (08:42)
[2023-12-11] MEDS: fentaNYL CITRATE INJ (*CRX) 100 MCG/2 ML VIAL 25 MCG IV PUSH ×6 (14:04→14:46)
[2023-12-11] MEDS: HYDROmorphone HCL INJ (*CRX) 1 MG/ML SYR IV PUSH ×2 (15:00→15:20)
[2023-12-11] MEDS: KETOROLAC 15 MG/ML VIAL (*BKC) IV PUSH (15:34)
--- NOTE | 2023-12-11 15:37 | SUR.PHASEI ---
Dr. Shea notified by this RN at 1531 of uncontrolled pain. Patient pain is still 10/10 despite administered medications per MAY. Per Dr. Shea, give patient 15mg Toradol IVP and notify him if there is still no improvement.
== END 2023-12-11 17:24 | disposition home or self-care (01) ==
PROVIDERS: PCP Internal Medicine; Visit Provider Surgery Plastic and Reconstructive Surgery
PROC: (CPT 15836; principal; 2023-12-11 07:30)
PROC: (CPT 19316; 2023-12-11 07:30)
DX: Z41.1 Encounter for cosmetic surgery (principal); L57.4 Cutis laxa senilis; N64.81 Ptosis of breast; N64.82 Hypoplasia of breast; K21.9 Gastro-esophageal reflux disease without esophagitis; I73.00 Raynaud's syndrome without gangrene; E66.9 Obesity, unspecified; Z68.35 Body mass index [BMI] 35.0-35.9, adult; Z79.85 Long-term (current) use of injectable non-insulin antidiabetic drugs; Z79.891 Long term (current) use of opiate analgesic; Z98.890 Other specified postprocedural states; Z98.84 Bariatric surgery status; Z98.51 Tubal ligation status; Z80.0 Family history of malignant neoplasm of digestive organs; Z82.49 Family history of ischemic heart disease and other diseases of the circulatory system
CPT/HCPCS: 19316; 19325; 15878; 15836; 80307; A9270; J0171; J0690; J1100; J1170; J1580; J1885; J2250; J2405; J2704; J3010; J7120

== ENCOUNTER 2024-07-15 02:24 | Day surgery (SDC) | payer OTHER, SELFPAY ==
[2024-07-12 09:09] VITALS: BMI 34.2
--- NOTE | 2024-07-12 09:16 | PC.NURSE ---
Report to the Outpatient Waiting Room, entrance under the green pavilion located off [facility], at time _0700_ on date _[phone]_. Planned Procedure Time: _0900_.? Time changes happen often and if your time is changed the preop area will call you the afternoon before. - You and your visitor will be asked to self-screen and do not enter if you have any COVID symptoms. Please call surgeon if you need to reschedule. - A mask is optional within the hospital at this time. Patients may have clear liquids (water, carbonated beverages, clear teas, apple juice) until 3 hours prior to surgery with a maximum of 20 ounces. - No food from midnight until time of surgery and no smoking, or chewing tobacco (or any form of nicotine). No chewing gum, candy or mints. Take only the following medications with a SIP of water on the morning of surgery: ___Venlafaxine____ DO NOT STOP ANY OF YOUR OTHER PRESCRIPTION MEDICATIONS PRIOR TO SURGERY EXCEPT THE FOLLOWING Hold all vitamins and supplements for 3 days per anesthesiologist. Medications to discontinue per physician Date to take last dose____Hold starting today.____ Please no make-up, nail latvian, hairspray, perfume, deodorant, or body powder the day of surgery.? No jewelry (including any body piercings) or valuables the day of surgery, leave them at home.? Please take a shower or bath the night before, or the morning of, surgery with an antibacterial soap.? Wear comfortable, loose fitting clothing.? - Jewelry must be removed prior to entering the operating room.? Rings and piercings that are not removed may be cut off. - The hospital will not accept responsibility for valuables.? - Please leave all valuables, including medications, at home the day of surgery. If you are going home after surgery, a licensed salesperson driver must drive you home.? - NO public transportation without another adult if you receive anesthesia. - We recommend that an adult stay with you for 24 hours following discharge. - We also recommend that you do not drive, make important decision, drink alcoholic beverages, or take any drugs that were not prescribed by your health care provider for at least 24 hours after your discharge time. Follow any additional instructions given to you from your surgeon. Telephone instructions given to __Alan__and asked if any additional questions and then verbalized understanding. Patient advised to call surgeon office or pre surgery nurse liaison [phone] if any additional questions.
[2024-07-15] VITALS (12 sets, daily range): BP systolic 132–151; BP diastolic 77–97; PULSE 73–102; RESP 16–19; TEMP 36.9–37.1; O2SAT 92–100
--- OUTSIDE RECORDS SUMMARY | 2024-07-15 02:27 | XMS_ITS | Clinical Summary ---
Author Organization [facility] Address [address] [place] [address] Care Team Providers Care Floatlight Loading Supervisor Name Role Phone Gus Viviane Sanchez Primary Care Provider [phone] Social History Tobacco Use Types Packs/Day Years Used Date Smoking Tobacco: Never Assessed Comments Unknown Sex and Gender Information Value Date Recorded Sex Assigned at Not on file Legal Sex Female 6:34 PM CDT Gender Identity Not on file Sexual Orientation Not on file Last Filed Vital Signs Vital Sign Reading Time Taken Comments Blood Pressure 136/88 06/16/2013 3:40 PM CDT Pulse 70 10/07/2012 4:19 PM CDT Temperature - - Respiratory Rate - - Oxygen Saturation - - Inhaled Oxygen Concentration - - Weight 104.3 kg (230 lb) 03/19/2013 3:34 PM DANCE THERAPIST Height 161.3 cm (5' 3.5 ) 06/22/2012 11:45 AM CD T Body Mass Index 40.1 06/22/2012 11:45 AM CDT Plan of Treatment Health Maintenance Due Date Last Done Comments Cervical Cancer Screening Pa p Smear (Age 30 to 64) Every 3 Years 1974 Colorectal Cancer Screening Colonoscopy (10 Years) 1974 Annual Physical 1977 Hepatitis C 1992 Hepatitis B Vaccines (1 of 3 - 19+ 3-dose series) 1993 Cervical Cancer Screening Pa p with HPV Testing (Age 30 to 64) Every 5 Years 2004 Cervical Cancer Screening with HPV 2004 Mammogram Screening 2014 DTaP, Tdap and Td Vaccines ( 2 - Td or Tdap) 01/07/2017 01/07/2007 COVID-19 Vaccine (2023-2 5 season) 2023 Meningococcal B Vaccine Aged Out No l onger eligible based on patient's age to complete this topic Meningococcal Vaccine Aged Out No marylin sharita eligible based on patient's age to complete this topic Pneumococcal Vaccine: Pediat rics (0 to 5 Years) and At-Risk Patients (6 to 49 Years) Aged Out No longer eligi ble based on patient's age to complete this topic RSV Immunizations Under 20 Months Aged Out No longer eligible based on patient's age to complete this topic Care Teams Floatlight Loading Supervisor Relationship Specialty Start Date End Date Viviane Weber DO [address] [place] [address] PCP - General 06/16/13
--- OUTSIDE RECORDS SUMMARY | 2024-07-15 02:27 | XMS_ITS | Patient Health Record ---
Author Organization [facility] Address [address] [facility] [place] [address] Care Team Providers Care Environmental Health Manager Name Role Phone MARIELENA CLEMENTS MD Primary Care Provider Unavail able Asael Tuttle Unavailable [phone] ALLERGIES Allergen (clinical drug ingredient) Drug/Non Drug Allergy documented on EMR Reaction Allergy Type Onset Date Status Iodinated contrast media (substance) Iodinated Diagnostic Agents hives Drug Allergy Active Penicillin childhood allergy Drug Allergy Active Substance with sulfonamide structure and antibacterial mechanism of action (substance) Sulfa Antibiotics numbness Drug Allergy Active REASON FOR REFERRAL No Information MEDICATIONS Medication SIG (Take, Route, Frequency, Duration) Notes Start Date End Date Status Aleve 220 MG 1 tablet with food o r milk as needed Orally every 12 hrs Active Magnesium Active Adderall 20 MG 1 tablet Orally Twic e a day Active Ranitidine HCl 150 MG 1 tablet Oral Once a day Active Ibuprofen 800 MG 1 tablet with food o r milk as needed Orally every 8 hrs Active Iron Active Modafinil 200 MG 1 tablet in the morn ing Orally Once a day Active Topiramate 50 MG 1 tablet Oral Twice a day Active Venlafaxine HCl 25 MG 1 tablet with food Orally Twice a day for 30 day(s) Active valACYclovir HCl 500 MG 1 tablet Oral Once a day Active Claritin Active SUMAtriptan Succinate 100 MG Oral for 30 Active Sudafed Active Flonase Active K24-Itttoi Active SOCIAL HISTORY Tobacco Use: Social History Observation Description Date Details (start date - stop date) Never Smoker NA - NA Sex Assigned At : Social History Observation Description Sex Assigned At Unknown Tobacco Use/Smoking Question Answer Notes Are you a nonsmoker PROBLEMS Problem Type ICD Code Onset Dates Problem Status W/U Status Risk SNOMED Code Notes Problem Spondylosis without myelopathy or radiculopathy, lumbar region (M47.816) Active confirmed Lumbosacral spondylosis without myelopathy (91873406) Problem Spondylosis without myelopathy or radiculopathy, lumbosacral region (M47.817) Active confirmed Lumbosacral spondylosis without myelopathy (disorder) (75881699) Problem Intervertebral disc disorders with radiculopathy, lumbar region (M51.16) Active confirmed Radiculopathy due to lumbar intervertebral disc disorder (205443234802358 ) Problem Radiculopathy, lumbar region (M54.16) Active confirmed Lumbar radiculopathy (233072643) Problem Radiculopathy, lumbosacral region (M54.17) Active confirmed Lumbosacral radiculopathy (1724098) Problem Trochanteric bursitis, unspecified hip (M70.60) Active confirmed Enthesopathy of hip region (22662481) bilateral Problem Trochanteric bursitis, left hip (M70.62) Active confirmed Trochanteric bursitis of left hip (548280440372348 ) Problem Osseous stenosis of neural canal of lumbar region (M99.33) Active confirmed Spinal stenosis of lumbar region (06211754) Problem Contusion of lower back and pelvis, sequela (S30.0XXS) Active confirmed Late effect of contusion (22327941) Problem Spinal stenosis, lumbar region with neurogenic claudication (M48.062) Active confirmed Neurogenic claudication (661344814) PLAN OF TREATMENT No Information Insurance Providers Payer Name Payer Address Payer Phone Subscriber Number Group Number Insured Name Patient Relationship to Insured Coverage Start Date Coverage End Date R [address] [address] [place] [phone] [id number] ANNE WILBURN Self - patient is the insured MEDICAL (GENERAL) HISTORY Medical History History ICD Code Morbid Obesity Gastroesophageal Reflux Disease (GERD) Anxiety Asthma Depression Hypoglycemia Migraine Hypertension IBS Narcolepsy Surgical History Surgery Date(Month/Year) Gastric Bypass 2002 Cholecystectomy Section Tubal Ligation
--- OUTSIDE RECORDS SUMMARY | 2024-07-15 02:27 | XMS_ITS | Clinical Summary ---
Author Organization [facility] Address [address] [address] [place] [address] Phone Care Team Providers Care Setter Helper Name Role Phone Unavailable Primary Care Provider Unavailabl e Social History Tobacco Use Types Packs/Day Years Used Date Smoking Tobacco: Never Assessed Comments Unknown Sex and Gender Information Value Date Recorded Sex Assigned at Not on file Legal Sex Female 11:52 AM CDT Gender Identity Not on file Sexual Orientation Not on file Plan of Treatment Health Maintenance Due Date Last Done Comments DTAP/TDAP/TD VACCINES (1 - Tdap) 1993 HEPATITIS B VACCINES (1 of 3 - 19+ 3-dose series) 1993 HPV/Cotest (21-29) 10/02/1995 CERVICAL CANCER SCREENING 2004 HPV/Cotest (30-65) 2004 PAP SMEAR 2004 BREAST CANCER SCREENING 03/09/2019 03/09/2018, 03/09 COLORECTAL SCREENING 10/02/2019 Colorectal Cancer Screening 10/02/2019 FIT-DNA Q 3 years 10/02/2019 FIT/FOBT Q 1 year 10/02/2019 Flex Sig/CT Colonography Q 5 years 10/02/2019 INFLUENZA VACCINE (#1) 2023 Insurance BCBS BLUE ACCESS/TRUE BLUE PPO
--- OUTSIDE RECORDS SUMMARY | 2024-07-15 02:27 | XMS_ITS | Clinical Summary ---
Author Organization [facility] Address [address] [place] [address] Care Team Providers Care Freezer Person Name Role Phone Unavailable Primary Care Provider Unavailabl e Source Comments [facility],non-owned Affiliates and Associated Physician Practices is amultiple site organization consisting of ambulatory clinics and hospital sitesin [place], [place], [place] and [place]. This disclosure is being madepursuant to the Care Everywhere program and may not contain all information available regarding this patient. Last updated 17.[facility] Encounters Date Type Department Care Team Description 06/10/2024 Lab Requisition [facility] - DermPath Lab [address] [place] [address] Avis Woodard MD from Last 3 Months Social History Tobacco Use Types Packs/Day Years Used Date Smoking Tobacco: Never Assessed Comments Unknown Sex and Gender Information Value Date Recorded Sex Assigned at Not on file Legal Sex Female 6:06 AM DIRECTOR CALL CENTER SALES Gender Identity Not on file Sexual Orientation Not on file Plan of Treatment Health Maintenance Due Date Last Done Comments COLOGUARD (AGES 45-75) - COL ON CA SCREENING 1974 COLON MONITORING 1974 COLONOSCOPY - COLON CA SCREENING 1974 CT COLONOGRAPHY - COLON CA SCREENING 1974 Colorectal Cancer Screening 1974 FIT - COLON CA SCREENING 1974 FLEX SIG - COLON CA SCREENING 1974 LIPID TESTING 1974 MAMMOGRAM 1974 PAP SMEAR 1974 HIV SCREENING 1989 HEPATITIS C SCREENING 09/26/1992 DTAP/TDAP/TD VACCINES (1 - Tdap) 1993 HEPATITIS B VACCINE (1 of 3 - 19+ 3-dose series) 1993 COVID-19 VACCINE (2023-2 5 season) 2023 DEPRESSION SCREENING 03/24/2024 MEDICARE AWV CALENDAR YEAR 2024 ZOSTER VACCINE (1 of 2) 2024 INFLUENZA VACCINE (Season Ended) 2024 HIB VACCINE Aged Out No longer eligi ble based on patient's age to complete this topic HPV VACCINE Aged Out No longer eligi ble based on patient's age to complete this topic MENINGOCOCCAL (Group B) VACC INE SHARED DECISION-MAKING Aged Out No longer eligibl e based on patient's age to complete this topic MENINGOCOCCAL GROUPS A/C/Y/W VACCINE Aged Out No longer eligible b ased on patient's age to complete this topic Procedures Procedure Name Priority Date/Time Associated Diagnosis Comments DERMATOPATHOLOGY Routine 06/10/2024 9:05 AM CDT from Last 3 Months Results * DERMATOPATHOLOGY (06/10/2024 9:05 AM CDT) Case Report Dermatopathology Report Case: [id number] Authorizing Provider: Avis Woodard MD Collected: 06/10/2024 09:05 AM Ordering Location: [facility] - Received: 06/14/2024 06:37 AM DermPath Lab Pathologist: Bri Ramos MD Specimen: Skin, right abdomen 5:39 PM CDT DERMATOPATHOLOGY LABORATORY Final Diagnosis Specimen A. SKIN, right abdomen: BASAL CELL CARCINOMA, NODULAR TYPE (C44.519) 5:39 PM CDT DERMATOPATHOLOGY LABORATORY Clinical History R/O BCC 5:39 PM CDT DERMATOPATHOLOGY LABORATORY Gross Description Specimen A: Received is one formalin filled container labeled with the patient's name and designated right abdomen. The specimen consists of a shave biopsy measuring 8x7x1 mm. Jar 0. 5:39 PM CDT DERMATOPATHOLOGY LABORATORY Microscopic Description Specimen A. SKIN, right abdomen: Within the dermis there are aggregates of basaloid cells with a high nuclear to cytoplasmic ratio and peripheral palisading. 5 5:39 PM CDT DERMATOPATHOLOGY LABORATORY Disclaimer An external and internal positive and negative controls are appropriate for the histochemical, immunohistochemical and immunofluorescence stain(s) in this case (if any), except where stated explicitly. The performance characteristics of the stain(s) cited in this report were developed and its performance characteristic determined by the Dermatopathology Laboratory at [facility], directed by Dr. Chalino Melendrez. These tests need not be, and therefore are not, approved by the [place] Food and Drug Administration. The tests are used for clinical purposes. Billing Codes Specimen Charges Stain Charges 57688 1 5 5:39 PM CDT DERMATOPATHOLOGY LABORATORY Embedded Images 5 5:39 PM CDT DERMATOPATHOLOGY LABORATORY Pathology/Cytolo gy TISSUE SPECIMEN FROM SKIN / Unknown 06/10/2024 9:05 AM CDT 06/14/2024 6:37 AM CDT Avis Woodard MD LAB - PATHOLOGY/CYTOLOGY OR DERABLES Final Result DERMATOPATHOLOGY LABORATORY [facility] - Department of Dermatology Formerly [facility] Medicine [address] [place] [address], [address] [phone] from Last [address] [place] [address] [facility] MEDICARE [employer] MEDICARE ADV HMO & PPO
--- OUTSIDE RECORDS SUMMARY | 2024-07-15 02:27 | XMS_ITS | Encounter Summary ---
Author Organization [facility] Address [address] [place] [address] Care Team Providers Care Belt And Link Shop Supervisor Name Role Phone Viviane Weber DO Primary Care Provider Encounter Details Date Type Department Care Team (Latest Contact Info) Description 01/27/2018 Abstract [facility] Medical Group Troy Jackson MD Social History Tobacco Use Types Packs/Day Years Used Date Smoking Tobacco: Never Assessed Comments Unknown Sex and Gender Information Value Date Recorded Sex Assigned at Not on file Legal Sex Female 6:34 PM CDT Gender Identity Not on file Sexual Orientation Not on file documented as of this encounter Plan of Treatment Not on file documented as of this encounter Visit Diagnoses Not on filedocumented in this encounter Care Teams Belt And Link Shop Supervisor Relationship Specialty Start Date End Date Viviane Weber DO [address] [place] [address] PCP - General 06/16/13 documented as of this encounter
--- OUTSIDE RECORDS SUMMARY | 2024-07-15 02:27 | XMS_ITS | Encounter Summary ---
Author Organization [facility] Address [address] [place] [address] Care Team Providers Care Dental Laboratory Supervisor Name Role Phone Unavailable Primary Care Provider Unavailabl e Encounter Details Date Type Department Care Team (Late st Contact Info) Description 06/10/2024 Lab Requisition [facility] - DermPath Lab [address] [place] [id number] Avis Woodard MD [address] [facility] [address] [place] [address] Social History Tobacco Use Types Packs/Day Years Used Date Smoking Tobacco: Never Assessed Comments Unknown Sex and Gender Information Value Date Recorded Sex Assigned at Not on file Legal Sex Female 6:06 AM LEGAL SECRETARY RECEPTIONIST Gender Identity Not on file Sexual Orientation Not on file documented as of this encounter Plan of Treatment Not on file documented as of this encounter Procedures Procedure Name Priority Date/Time Associated Diagnosis Comments DERMATOPATHOLOGY Routine 06/10/2024 9:05 AM CDT documented in this encounter Results * DERMATOPATHOLOGY (06/10/2024 9:05 AM CDT) Case Report Dermatopathology Report Case: [id number] Authorizing Provider: Avis Woodard MD Collected: 06/10/2024 09:05 AM Ordering Location: [facility] Physician [facility] - Received: 06/14/2024 06:37 AM DermPath Lab Pathologist: Bri Ramos MD Specimen: Skin, right abdomen 5:39 PM CDT DERMATOPATHOLOGY LABORATORY Final Diagnosis Specimen A. SKIN, right abdomen: BASAL CELL CARCINOMA, NODULAR TYPE (C44.519) 03/25/202 5 5:39 PM CDT DERMATOPATHOLOGY LABORATORY Clinical History [...] nuclear to cytoplasmic ratio and peripheral palisading. 5:39 PM CDT DERMATOPATHOLOGY LABORATORY Disclaimer An external and internal positive and negative controls are appropriate for the histochemical, immunohistochemical and immunofluorescence stain(s) in this case (if any), except where stated explicitly. The performance characteristics of the stain(s) cited in this report were developed and its performance characteristic determined by the Dermatopathology Laboratory at [facility], directed by Dr. Chalino Melendrez. These tests need not be, and therefore are not, approved by the [place] Food and Drug Administration. The tests are used for clinical purposes. Billing Codes Specimen Charges Stain Charges 96839 1 5:39 PM CDT DERMATOPATHOLOGY LABORATORY Embedded Images 5:39 PM CDT DERMATOPATHOLOGY LABORATORY Pathology/Cytolo gy TISSUE SPECIMEN FROM SKIN / Unknown 06/10/2024 9:05 AM CDT 06/14/2024 6:37 AM CDT Avis Woodard MD LAB - PATHOLOGY/CYTOLOGY OR DERABLES Final Result DERMATOPATHOLOGY LABORATORY [facility] - Department of Dermatology [address] [place] [address], [facility] [phone] documented in this encounter Visit Diagnoses Not on filedocumented in this encounter
--- OUTSIDE RECORDS SUMMARY | 2024-07-15 02:27 | XMS_ITS | CONTINUITY OF CARE DOCUMENT ---
Author Organization Unknown INSURANCE PROVIDERS Payer name Policy type / Coverage type Yordy red constitution party ID [facility] [id number]
[2024-07-15] MEDS: SCOPOLAMINE 1 MG PATCH 1 PATCH TRANSDERM (07:45)
[2024-07-15] MEDS: LACTATED RINGERS 1,000 ML 30 ML IV CONT ×2 (07:50→10:28)
[2024-07-15] MEDS: TRANEXAMIC ACID 1,000MG/ISO100 1,000 MG/100 ML BAG 200 MG IVPB (07:55)
--- NOTE | 2024-07-15 08:04 | P.PNAN_ITS ---
Anes - Initial Pre Proc Eval Procedure: Operation Date: 07/15/24 09:00 Proposed Procedures p Bilateral Breast Augmentation - Seth Shea MD Date/Time: 07/15/24 08:04 Surgeon: Seth Shea MD Pre Op Diagnosis: micromastia Patient Data Age: 48 Gender: F Height: 1.6 m Weight: 89 kg Last Vital Signs Temp 37.1 C 07/15/24 07:30 Pulse 84 07/15/24 07:30 Resp 18 07/15/24 07:30 BP 150/92 H 07/15/24 07:30 Pulse Ox 98 07/15/24 07:30 O2 Del Method Room Air 07/15/24 07:30 Allergies Allergy/AdvReac Type Severity Reaction Status Date / Time shellfish derived Allergy Intermediate Itching Verified 07/15/24 07:58 ioversol Allergy Unknown Hives Verified 07/15/24 07:58 Penicillins Allergy Unknown Unknown Verified 07/15/24 07:58 Sulfa (Sulfonamide Allergy Unknown Numbness Verified 07/15/24 07:58 Antibiotics) Home Medications ?Medication ?Instructions ?Recorded ?Confirmed ?Type cetirizine 10 mg tablet (Zyrtec) 10 mg PO DAILY 04/09/21 07/15/24 History cholecalciferol (vitamin D3) 25 25 mcg PO DAILY 04/09/21 07/15/24 History mcg (1,000 unit) chewable tablet (Vitamin D3) ferrous sulfate 325 mg (65 mg 325 mg PO DAILY 04/09/21 07/15/24 History iron) tablet (Iron (ferrous sulfate)) modafinil 200 mg tablet 200 mg PO BID 04/09/21 07/15/24 History vitamin B complex 1 tablet PO DAILY 04/09/21 07/15/24 History dextroamphetamine-amphetamine 20 20 mg PO DAILY 05/17/22 07/15/24 History mg tablet venlafaxine 75 mg capsule,extended 225 mg PO DAILY 08/28/23 07/15/24 History release 24 hr hydrocodone 5 mg-acetaminophen 325 1 tablet PO Q8H PRN pain #14 tabs 09/27/23 07/12/24 Rx mg tablet pseudoephedrine HCl 30 mg tablet 30 mg PO Q4-6H PRN Allergy Symptoms 12/08/23 07/12/24 History (Sudafed) omeprazole 20 mg capsule,delayed 20 mg PO DAILY 07/12/24 07/15/24 History release Patient hx anesthesia problems: none Family hx anesthesia problems: none Results Review: All pre-operative results and documents have been reviewed as part of the pre- operative evaluation. [facility] Past Medical History Medical History Obesity Narcolepsy Surgical History Surgical History S/P gastric sleeve procedure Family History Family History Grandparent Family history of thyroid disease Hypertension Family history of Alzheimer's disease Father Hypertension Other Carcinoma of colon Diabetes mellitus Family history of arthritis Family history of atrial fibrillation Family history of cardiovascular disease Family history of kidney disease Family history of lung disease Family history of mental disorder Family history of osteoporosis Social History Social History Years smoked: 5 Smoking status: Former smoker Tobacco type: cigarettes Smoking end date: 07/12/09 Alcohol intake: current Drinks per week: 6 Alcohol use details: A COUPLE GLASSES OF WINE A NIGHT Substance use: never Substance use type: does not use Living arrangements: with family Spiritual care concerns: No Anes - Eval Final PreProcedure Day of Procedure 07/15/24 08:04 Patient weight: obese Heart: regular rate and rhythm Lungs: clear to auscultation Airway: Mallampati scale class II Neurological: alert and oriented Last oral intake: >/= 8 hours ASA classification: III Emergent: no Anesthetic plan: proceed Anesthesia type and monitoring: general LMA and standard monitoring Results Review: All pre-operative results and documents have been reviewed as part of the pre- operative evaluation. Informed Consent: The patient's anesthetic plan and its attendant risks and benefits were discussed with the patient/family/POA. Questions were solicited and answers provided to the satisfaction of the patient/family/POA.
--- NOTE | 2024-07-15 08:35 | WPDHPUPDATE1 ---
History and Physical Update Update Date/Time: 07/15/24 08:35 History and Physical has been reviewed, including an updated exam of the patient. There are NO changes in the patient's condition. Risks, benefits, and alternatives have been discussed and questions answered. Patient agrees to proceed with procedure.
--- NOTE | 2024-07-15 08:35 | W.PM.PROC2 ---
Procedure Note - Detailed Date of Procedure 07/15/24 Pre-op Diagnosis micromastia Post-op Diagnosis Same Procedure Performed Bilateral augmentation mammaplasty Surgeon Seth Shea MD Anesthesia General Findings Placed same plane (dual plane). Bilateral Zoraida Henry SoftTouch 560 cc Right: REF# [facility]-560 SN [id number] Left: REF# [facility]-560 SN [id number] Significantly adhered / scarred capsule. Description of Procedure She is here today for bilateral breast augmentation (history of bilateral breast augmentation). Previously and again today the risks, benefits, alternatives were discussed in extensive detail. I wanted her to be very realistic about the risks involved as well as expectations. Discussed the critical importance of good nutrition for healing. We discussed aftercare and what to monitor for. Made sure answered all of her questions to her satisfaction today and consent was obtained. Marked in the preoperative holding area with their verification. The patient was taken to the operating room placed supine on the operating table. Anesthesia was provided by anesthesiology. A surgical time-out was taken. We cleansed the skin and 1% lidocaine and 0.25% Marcaine with epinephrine was used anesthetize as a field block. She was prepped and draped in a standard sterile fashion. Tegaderm nipple Duque were placed. A 15 blade used to make an incision along the inframammary fold. Dissection was continued at 45 degree angle until the previous pocket was identified. Pocket was opened and capsulotomy was completed as needed for biodimensional planning. Irrigated with 2 liters of saline solution on TUR solution. Then again I then copiously irrigated with saline solution and verified a strict hemostasis. Next the use a triple antibiotic and Betadine containing solution to irrigate the pocket. I washed my gloves with the triple antibiotic and Betadine solution. We washed the implant immediately upon opening it with this solution and only opened it when we needed it. I used implant funnel and no-touch technique. The implant was introduced into the pocket using the funnel. Having verified positioning of the implant this was closed using 2-0 PDS followed by 3-0 Monocryl in a running subcuticular 4-0 Monocryl followed by tissue glue. Fluffs and surgical bra were placed. Patient was awoke and taken to PACU without difficulty. All instrument sponge counts were correct at the end of the case. Estimated Blood Loss 120 Drains No Packing No Pathology None sent Complications No immediate complications Condition Stable Disposition PACU
[2024-07-15] MEDS: ceFAZolin 2 GM/D5W 50 ML 2 GM/50 ML BAG IVPB (08:52)
[2024-07-15] MEDS: NACL 0.9% IRRIG POUR BOTTLE 900 ML, GENTAMICIN SULFATE INJ 160 MG, CLINDAMYCIN PHOS INJ... IRRIGATION (09:19)
[2024-07-15] MEDS: BUPivacaine HCL 0.25% PF 30 ML VIAL INFILTRATE (09:22)
[2024-07-15] MEDS: LIDO 1%/EPINEPHRINE 1:100,000 20 ML VIAL 30 ML INFILTRATE (09:23)
[2024-07-15] MEDS: fentaNYL CITRATE INJ (*CRX) 100 MCG/2 ML VIAL 25 MCG IV PUSH ×5 (11:19→12:21)
[2024-07-15] MEDS: oxyCODONE HCL (*CRX) 5 MG TAB IR PO (12:18)
== END 2024-07-15 13:05 | disposition home or self-care (01) ==
PROVIDERS: PCP Internal Medicine; Visit Provider Surgery Plastic and Reconstructive Surgery
PROC: (CPT 19325; principal; 2024-07-15 09:00)
DX: Z41.1 Encounter for cosmetic surgery (principal); N64.82 Hypoplasia of breast; K21.9 Gastro-esophageal reflux disease without esophagitis; I73.00 Raynaud's syndrome without gangrene; G47.411 Narcolepsy with cataplexy; E66.9 Obesity, unspecified; Z68.34 Body mass index [BMI] 34.0-34.9, adult; Z79.85 Long-term (current) use of injectable non-insulin antidiabetic drugs; Z79.891 Long term (current) use of opiate analgesic; Z98.890 Other specified postprocedural states; Z98.84 Bariatric surgery status; Z98.51 Tubal ligation status; Z87.891 Personal history of nicotine dependence; Z80.0 Family history of malignant neoplasm of digestive organs; Z82.49 Family history of ischemic heart disease and other diseases of the circulatory system
CPT/HCPCS: 19325; A9270; J0690; J1100; J1171; J1580; J2003; J2004; J2250; J2405; J2704; J3010; J7030; J7120

== ENCOUNTER 2024-12-29 13:25 | Outpatient (CLI) | payer OTHER, SELFPAY ==
[2024-12-29 14:50] LABS: Hematocrit 39.5 % (37.0-47.0); Hemoglobin 13.1 g/dL (12.0-15.0); Mean Corpuscular HGB Conc 33.2 g/dl (32-36); Mean Corpuscular Hemoglobin 35.3 pg (26-34); Mean Corpuscular Volume 106.5 fl (80-100); Platelet Count Result 265 k/mm3 (150-375); Red Blood Count 3.71 M/mm3 (4.2-5.4); White Blood Count 4.6 K/mm3 (4.5-10.0)
[2024-12-29 16:12] LABS: Iron 117 ug/dL (37-170)
[2024-12-29 16:16] LABS: Alanine Aminotransferase 32 U/L (6-35); Albumin Level 4.2 g/dL (3.5-5.1); Alkaline Phosphatase 87 U/L (38-126); Anion Gap 4 mmol/L (4-12); Aspartate Amino Transferase 52 U/L (14-36); Bilirubin,Total 0.3 mg/dL (0.2-1.3); Blood Urea Nitrogen 12 mg/dL (7-17); Calcium 8.8 mg/dL (8.4-10.2); Carbon Dioxide 28 mmol/L (22-30); Chloride 102 mmol/L (98-107); Estimated Glomerular Filt Rate > 60; Glucose 117 mg/dL (65-110); Potassium 3.7 mmol/L (3.4-5.0); Sodium 134 mmol/L (137-145); Total Protein 6.9 g/dL (6.3-8.2)
[2024-12-29 16:31] LABS: Prealbumin 37.8 mg/dL (17.6-36.0)
[2025-01-01 10:09] LABS: Vit. B1, Whole Blood 111.1 nmol/L (66.5-200.0)
== END 2024-12-29 13:26 | disposition home or self-care (01) ==
LOC: ANHLAB 13:28
PROVIDERS: PCP Internal Medicine; Visit Provider Surgery Plastic and Reconstructive Surgery
DX: R63.4 Abnormal weight loss (principal)
CPT/HCPCS: 36415; 80053; 83540; 84134; 84425; 85027

== ENCOUNTER 2025-01-11 11:22 | Outpatient (CLI) | payer OTHER, SELFPAY ==
--- NOTE | 2025-01-11 11:30 | ECG_ITS ---
Test Date: 2025-01-11 11:33:00 Measurements Intervals [place] Rate: 93 P: 47 GA: 144 QRS: -13 QRSD: 85 T: 15 QT: 355 QTc: 443 Interpretive Statements SINUS RHYTHM POOR R WAVE PROGRESSION BORDERLINE T WAVE ABNORMALITY- INFERIOR LEADS BASELINE ARTIFACT- II, III, AVR, AVL, AVF BORDERLINE ECG Compared to ECG 08/29/2023 13:16:26 No significant changes Electronically Signed On 01-11-2025 11:48:42 CDT by Marcell Alcantar D.O.
--- OUTSIDE RECORDS SUMMARY | 2025-01-11 14:22 | XMS_ITS | Encounter Summary ---
Author Organization [facility] Address [address] [place] [address] Care Team Providers Care Senior Sales Compensation Analyst Name Role Phone Viviane Weber DO Primary Care Provider [phone] Encounter Details Date Type Department Care Team (Latest Contact Info) Description 01/27/2018 Abstract [facility] Troy Jackson MD Social [...] on filedocumented in this encounter Care Teams Senior Sales Compensation Analyst Relationship Specialty Start Date End Date Viviane Weber DO [address] [place] [address] PCP - General 06/16/13 documented as of this encounter
--- OUTSIDE RECORDS SUMMARY | 2025-01-11 14:22 | XMS_ITS | Encounter Summary ---
Author Organization [facility] Address [address] [place] [address] Care Team Providers Care Case Management Associate Name Role Phone Unavailable Primary Care Provider Unavailabl e Encounter Details Date Type Department Care Team (Late st Contact Info) Description 06/10/2024 Lab Requisition [facility] - DermPath Lab [address] [place] [id number] Avis Woodard MD [address] [facility] [address] [place] [address] Social History Tobacco Use Types Packs/Day Years Used Date Smoking Tobacco: Never Assessed Comments Unknown Sex and Gender Information Value Date Recorded Sex Assigned at Not on file 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 Gender Identity Not on file Sexual Orientation Not on file documented as of this encounter Plan of Treatment Not on file documented as of this encounter Procedures Procedure Name Priority Date/Time Associated Diagnosis Comments DERMATOPATHOLOGY Routine 06/10/2024 9:05 AM CDT documented in this encounter Results * DERMATOPATHOLOGY (06/10/2024 9:05 AM CDT) Case Report Dermatopathology Report Case: [id number] Authorizing Provider: Avsi Woodard MD Collected: 06/10/2024 09:05 AM Ordering Location: [facility] - Received: 06/14/2024 06:37 AM DermPath Lab Pathologist: Bri Ramos MD Specimen: Skin, right abdomen 5:39 PM CDT DERMATOPATHOLOGY LABORATORY Final Diagnosis Specimen A. SKIN, right abdomen: BASAL CELL CARCINOMA, NODULAR TYPE (C44.519) 03/25/202 5 5:39 PM CDT DERMATOPATHOLOGY LABORATORY at 1739 CDT Clinical History R/O BCC 5:39 PM CDT [...] characteristic determined by the Dermatopathology Laboratory at [facility], directed by Dr. Chalino Melendrez. These tests need not be, and therefore are not, approved by the [place] Food and Drug Administration. The tests are used for clinical purposes. Billing Codes Specimen Charges Stain Charges 77192 1 5:39 PM CDT DERMATOPATHOLOGY LABORATORY Embedded Images 5:39 PM CDT DERMATOPATHOLOGY LABORATORY Pathology/Cytolo gy TISSUE SPECIMEN FROM SKIN / Unknown 06/10/2024 9:05 AM CDT 06/14/2024 6:37 AM CDT Avis Woodard MD LAB - PATHOLOGY/CYTOLOGY OR DERABLES Final Result DERMATOPATHOLOGY LABORATORY [facility] - Department of Dermatology [address] [place] [address], [facility] [phone] documented in this encounter Visit Diagnoses Not on filedocumented in this encounter
--- OUTSIDE RECORDS SUMMARY | 2025-01-11 14:22 | XMS_ITS | Clinical Summary ---
Author Organization [facility] [employer] Address [address] [place] [address] Care Team Providers Care Starbucks Clerk Name Role Phone Unavailable Primary Care Provider Unavailabl e Source Comments [facility],non-owned Affiliates and Associated Physician Practices is amultiple site organization consisting of ambulatory clinics and hospital sitesin [place], [place], [place] and [place]. This disclosure is being madepursuant to the Care Everywhere program and may not contain all information available regarding this patient. 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 Gender Identity Not on file Sexual Orientation [...] SCREENING 1974 LIPID TESTING 1974 MAMMOGRAM 1974 HIV SCREENING 1989 HEPATITIS C SCREENING 09/26/1992 DTAP/TDAP/TD VACCINES (1 - Tdap) 1993 HEPATITIS B VACCINE (1 of 3 - 19+ 3-dose series) 1993 PAP SMEAR 10/02/1995 DEPRESSION SCREENING 03/24/2024 MEDICARE AWV CALENDAR YEAR 2024 PNEUMOCOCCAL VACCINE 50+ (1 of 1 - PCV) 2024 ZOSTER VACCINE (1 of 2) 2024 COVID-19 VACCINE (2023-2 5 season) 2024 INFLUENZA VACCINE (#1) 2024 HIB VACCINE Aged Out No longer [...] on patient's age to complete this topic [place] [address] [facility] Address: [facility] [address] [place] [address] [facility] MEDICARE HUMANA MEDICARE ADV HMO & PPO
--- OUTSIDE RECORDS SUMMARY | 2025-01-11 14:22 | XMS_ITS | Clinical Summary ---
Author Organization [facility] Address [address] [address] [place] [address] Phone Care Team Providers Care Punchboard Inserter Name Role Phone Unavailable Primary Care Provider [...] Flex Sig/CT Colonography Q 5 years 10/02/2019 ZOSTER VACCINE (1 of 2) 2024 INFLUENZA VACCINE (#1) 2024 Insurance BCBS BLUE ACCESS/TRUE BLUE PPO
--- OUTSIDE RECORDS SUMMARY | 2025-01-11 14:22 | XMS_ITS | Clinical Summary ---
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 Height 161.3 cm (5' 3.5) 06/22/2012 11:45 AM CD T Body Mass [...] 2 - Td or Tdap) 01/07/2017 01/07/2007 Pneumococcal Vaccine: 50+ Ye ars (1 of 1 - PCV) 2024 Zoster Vaccines (1 of 2) 2024 COVID-19 Vaccine (2023-2 5 season) 2024 Influenza Adult (#1) 2024 Hepatitis A Vaccines Aged Out No long er eligible based on patient's age to complete this topic Meningococcal B Vaccine Aged Out No l onger eligible based on patient's age to complete this topic Meningococcal Vaccine Aged Out No marylin sharita eligible based on patient's age to complete this topic RSV Immunizations Under 20 Months Aged Out No longer eligible based on patient's age to complete this topic Care Teams Canvas Baster Relationship Specialty Start Date End Date Viviane Weber DO [address] [place] [address] PCP - General 06/16/13
--- OUTSIDE RECORDS SUMMARY | 2025-01-11 14:23 | XMS_ITS | Patient Health Record ---
Author Organization [facility] Address [address] [place] [address] Care Team Providers Care Phosphatic Fertilizer Supervisor Name Role Phone MARIELENA CLEMENTS MD Primary Care Provider Unavail able Asael Tuttle Unavailable [phone] ALLERGIES Allergen (clinical drug ingredient) Drug/Non Drug [...] for 30 Active Sudafed Active Flonase Active [id number] Active SOCIAL HISTORY Tobacco Use: Social History Observation Description Date Details (start date - stop date) Never Smoker NA - NA Sex Assigned At : Social History Observation Description Sex Assigned At Unknown Tobacco Use/Smoking Question Answer Notes Are you a nonsmoker Section Notes: The patient is disabled. She is with one child. She denies tobacco, alcohol, or illicit drug abuse The patient is disabled. She is with one child. She denies tobacco, alcohol, or illicit drug abuse The patient is disabled. She is with one child. She denies tobacco, alcohol, or illicit drug abuse The patient is disabled. She is with one child. She denies tobacco, alcohol, or illicit drug abuse The patient is disabled. She is with one child. 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 She denies tobacco, alcohol, or illicit drug abuse The patient is disabled. She is with one child. She denies tobacco, alcohol, or illicit drug abuse The patient is disabled. She is with one child. She denies tobacco, alcohol, or illicit drug abuse The patient is disabled. She is with one child. 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 She denies tobacco, alcohol, or illicit drug abuse PROBLEMS Problem Type ICD Code Onset Dates Problem Status W/U Status Risk SNOMED Code Notes Problem Spondylosis without myelopathy or radiculopathy, lumbar region (M47.816) Active confirmed Lumbosacral spondylosis without myelopathy (46051989) Problem Spondylosis without myelopathy or radiculopathy, lumbosacral region (M47.817) Active confirmed Lumbosacral spondylosis without myelopathy (disorder) (38835726) Problem Intervertebral disc disorders with radiculopathy, lumbar region (M51.16) Active confirmed Radiculopathy due to lumbar intervertebral disc disorder (277120576314668 ) Problem Radiculopathy, lumbar region (M54.16) Active confirmed Lumbar radiculopathy (329727903) Problem Radiculopathy, lumbosacral region (M54.17) Active confirmed Lumbosacral radiculopathy (7502957) Problem Trochanteric bursitis, unspecified hip (M70.60) Active confirmed Enthesopathy of hip region (38641999) bilateral Problem Trochanteric bursitis, left hip (M70.62) Active confirmed Trochanteric bursitis of left hip (379247016058731 ) Problem Osseous stenosis of neural canal of lumbar region (M99.33) Active confirmed Spinal stenosis of lumbar region (70637608) Problem Contusion of lower back and pelvis, sequela (S30.0XXS) Active confirmed Late effect of contusion (12475258) Problem Spinal stenosis, lumbar region with neurogenic claudication (M48.062) Active confirmed Neurogenic claudication (358133455) PLAN OF TREATMENT No Information Insurance Providers Payer Name Payer Address Payer Phone Subscriber Number Group Number Insured Name Patient Relationship to Insured Coverage Start Date Coverage End Date [facility] [address] [address] [place] [address] [id number] ANNE WILBURN Self - patient is the insured MEDICAL (GENERAL) HISTORY Medical History History ICD Code Morbid Obesity Gastroesophageal Reflux Disease (GERD) Anxiety Asthma Depression Hypoglycemia Migraine Hypertension IBS Narcolepsy Surgical History Surgery Date(Month/Year) Gastric Bypass 2002 Cholecystectomy Section Tubal Ligation
== END 2025-01-11 11:23 | disposition home or self-care (01) ==
LOC: ANHSURGERY 11:27
PROVIDERS: PCP Internal Medicine; Visit Provider Surgery Plastic and Reconstructive Surgery
DX: R94.31 Abnormal electrocardiogram [ECG] [EKG] (principal); Z41.1 Encounter for cosmetic surgery
CPT/HCPCS: 93005

== ENCOUNTER 2025-01-20 01:56 | Day surgery (SDC) | payer OTHER, SELFPAY ==
[2025-01-07 14:27] VITALS: BMI 31.8
--- NOTE | 2025-01-07 14:35 | PC.NURSE ---
[facility] has started construction of its new state of the art ER which will open Spring 2026. With this, we anticipate parking may be a challenge for some our surgical patients and families. Parking spaces are limited but are available for all Surgical, obstetrics, and ER patients sharing this lot. If you arrive and find you are having a hard time finding a parking space, please note that we understand the challenges, please drive around the hospital and park near Hospital Entrance 1. When you enter this entrance, you can ask a volunteer to direct or take you back to the surgical waiting area to check in. We appreciate everyone?s understanding of these expected challenges while we build for your future. Report to the Outpatient Waiting Room, entrance under the green pavilion located off [address], at time _0830_ on date _[phone]_. Planned Procedure Time: _1030_.? Time changes happen often and if your time is changed the preop area will call you the afternoon before. - You and your visitor will be asked to self-screen and do not enter if you have any COVID symptoms. Please call surgeon if you need to reschedule. - A mask is optional within the hospital at this time. Patients may have clear liquids (water, carbonated beverages, clear teas, apple juice) until 3 hours prior to surgery with a maximum of 20 ounces. - No food from midnight until time of surgery and no smoking, or chewing tobacco (or any form of nicotine). No chewing gum, candy or mints. Take only the following medications with a SIP of water on the morning of surgery: ___Venlafaxine____ DO NOT STOP ANY OF YOUR OTHER PRESCRIPTION MEDICATIONS PRIOR TO SURGERY EXCEPT THE FOLLOWING Hold all vitamins and supplements for 3 days per anesthesiologist. Medications to discontinue per physician Date to take last orxg__[phone]___ Please no make-up, nail honduran, hairspray, perfume, deodorant, or body powder the day of surgery.? No jewelry (including any body piercings) or valuables the day of surgery, leave them at home.? Please take a shower or bath the night before, or the morning of, surgery with an antibacterial soap.? Wear comfortable, loose fitting clothing.? - Jewelry must be removed prior to entering the operating room.? Rings and piercings that are not removed may be cut off. - The hospital will not accept responsibility for valuables.? - Please leave all valuables, including medications, at home the day of surgery. If you are going home after surgery, a licensed crew truck driver must drive you home.? - NO public transportation without another adult if you receive anesthesia. - We recommend that an adult stay with you for 24 hours following discharge. - We also recommend that you do not drive, make important decision, drink alcoholic beverages, or take any drugs that were not prescribed by your health care provider for at least 24 hours after your discharge time. Follow any additional instructions given to you from your surgeon. Telephone instructions given to _Alan___and asked if any additional questions and then verbalized understanding. Patient advised to call surgeon office or pre surgery nurse liaison [phone] if any additional questions.
[2025-01-20] VITALS (10 sets, daily range): BP systolic 102–150; BP diastolic 72–91; PULSE 80–98; RESP 16–20; TEMP 36.9–37.2; O2SAT 92–99
--- OUTSIDE RECORDS SUMMARY | 2025-01-20 01:58 | XMS_ITS | Clinical Summary ---
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
--- OUTSIDE RECORDS SUMMARY | 2025-01-20 01:58 | XMS_ITS | Clinical Summary ---
Author Organization [facility] [employer] Address [address] [place] [address] Care Team Providers Care Advisory Software Engineer Name Role Phone Unavailable Primary Care Provider Unavailabl e Source Comments [facility],non-owned Affiliates and Associated Physician Practices is amultiple site organization consisting of ambulatory clinics and hospital sitesin [place], [place], [place] and [place]. This disclosure is being madepursuant to the Care Everywhere program and may not contain all information available regarding this patient. 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
--- OUTSIDE RECORDS SUMMARY | 2025-01-20 01:58 | XMS_ITS | Encounter Summary ---
Author Organization [facility] Address [address] [place] [address] Care Team Providers Care Physician/Ophthalmologist Name Role Phone Viviane Weber DO Primary Care Provider Encounter Details Date Type Department Care Team (Latest Contact Info) Description 01/27/2018 Abstract [facility] Troy Jackson MD Social History [...] on filedocumented in this encounter Care Teams Physician/Ophthalmologist Relationship Specialty Start Date End Date Viviane Weber DO [address] [place] [address] PCP - General 06/16/13 documented as of this encounter
--- OUTSIDE RECORDS SUMMARY | 2025-01-20 01:58 | XMS_ITS | Encounter Summary ---
Author Organization [facility] Address [address] [facility] [place] [address] Care Team Providers Care Student Name Role Phone Unavailable Primary Care Provider Unavailabl e Encounter Details Date Type Department Care Team (Late st Contact Info) Description 06/10/2024 Lab Requisition [facility] - DermPath Lab [address] [facility] [place] [id number] Avis Woodard MD [address] [facility] [address] [place] [address] Social History Tobacco Use Types Packs/Day Years Used Date Smoking Tobacco: Never Assessed Comments Unknown Sex and Gender Information Value Date Recorded Sex Assigned at Not on file Legal 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 Gender Identity Not on file Sexual Orientation Not on file documented as of this encounter Plan of Treatment Not on file documented as of this encounter Procedures Procedure Name Priority Date/Time Associated Diagnosis Comments DERMATOPATHOLOGY Routine 06/10/2024 9:05 AM CDT documented in this encounter Results * DERMATOPATHOLOGY (06/10/2024 9:05 AM CDT) Case Report Dermatopathology Report Case: [id number] Authorizing Provider: Avis Woodard MD Collected: 06/10/2024 09:05 AM Ordering Location: [facility] Physician [facility] - Received: 06/14/2024 06:37 [...] characteristic determined by the Dermatopathology Laboratory at [facility], directed by Dr. Chalino Melendrez. These tests need not be, and therefore are not, approved by the [place] Food and Drug Administration. The tests are used for clinical purposes. Billing Codes Specimen Charges Stain Charges 18704 1 5:39 PM CDT DERMATOPATHOLOGY LABORATORY Embedded Images 5:39 PM CDT DERMATOPATHOLOGY LABORATORY Pathology/Cytolo gy TISSUE SPECIMEN FROM SKIN / Unknown 06/10/2024 9:05 AM CDT 06/14/2024 6:37 AM CDT Avis Woodard MD LAB - PATHOLOGY/CYTOLOGY OR DERABLES Final Result DERMATOPATHOLOGY LABORATORY [facility] - Department of Dermatology [address] [place] [address], [facility] [phone] documented in this encounter Visit Diagnoses Not on filedocumented in this encounter
--- OUTSIDE RECORDS SUMMARY | 2025-01-20 01:59 | XMS_ITS | Patient Health Record ---
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 She denies tobacco, alcohol, or illicit drug abuse The patient is disabled. She is with one child. She denies tobacco, alcohol, or illicit drug abuse The patient is disabled. She is with one child. 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 She denies tobacco, alcohol, or illicit drug abuse PROBLEMS Problem Type ICD Code Onset Dates Problem Status W/U Status Risk SNOMED Code Notes Problem Spondylosis without myelopathy or radiculopathy, lumbar region (M47.816) Active confirmed Lumbosacral spondylosis without myelopathy (57151093) Problem Spondylosis without myelopathy or radiculopathy, lumbosacral region (M47.817) Active confirmed Lumbosacral spondylosis without myelopathy (disorder) (89600138) Problem Intervertebral disc disorders with radiculopathy, lumbar region (M51.16) Active confirmed Radiculopathy due to lumbar intervertebral disc disorder (233783598503738 ) Problem Radiculopathy, lumbar region (M54.16) Active confirmed Lumbar radiculopathy (548432782) Problem Radiculopathy, lumbosacral region (M54.17) Active confirmed Lumbosacral radiculopathy (4144290) Problem Trochanteric bursitis, unspecified hip (M70.60) Active confirmed Enthesopathy of hip region (69358231) bilateral Problem Trochanteric bursitis, left hip (M70.62) Active confirmed Trochanteric bursitis of left hip (763092660776579 ) Problem Osseous stenosis of neural canal of lumbar region (M99.33) Active confirmed Spinal stenosis of lumbar region (97878811) Problem Contusion of lower back and pelvis, sequela (S30.0XXS) Active confirmed Late effect of contusion (91929909) Problem Spinal stenosis, lumbar region with neurogenic claudication (M48.062) Active confirmed Neurogenic claudication (492036414) PLAN OF TREATMENT No Information Insurance Providers Payer Name Payer Address Payer Phone Subscriber Number Group Number Insured Name Patient Relationship to Insured Coverage Start Date Coverage End Date [facility] [address] [address] [place] [address] [id number] ANNE WILBURN Self - patient is the insured MEDICAL (GENERAL) HISTORY Medical History History ICD Code Morbid Obesity Gastroesophageal Reflux Disease (GERD) Anxiety Asthma Depression Hypoglycemia Migraine Hypertension IBS Narcolepsy Surgical History Surgery Date(Month/Year) Gastric Bypass 2002 Cholecystectomy Section Tubal Ligation
[2025-01-20] MEDS: LACTATED RINGERS 1,000 ML 30 ML IV CONT ×2 (10:00→15:00)
[2025-01-20] MEDS: TRANEXAMIC ACID 1,000MG/ISO100 1,000 MG/100 ML BAG 200 MG IVPB (10:06)
--- NOTE | 2025-01-20 10:40 | WPDHPUPDATE1 ---
History and Physical Update Update Date/Time: 01/20/25 10:40 History and Physical has been reviewed, including an updated exam of the patient. There are NO changes in the patient's condition. Risks, benefits, and alternatives have been discussed and questions answered. Patient agrees to proceed with procedure.
--- NOTE | 2025-01-20 10:41 | W.PM.PROC2 ---
Procedure Note - Detailed Date of Procedure 01/20/25 Pre-op Diagnosis Skin Laxity, Hx of Abdominoplasty Post-op Diagnosis Same Procedure Performed 1. Bilateral medial thigh lift 2. Bilateral axillary suction lipectomy (anterior / tail of breast) 3. Left inferior abdominal scar revision and subcision left lower abdominal scar. Surgeon Seth Shea MD Anesthesia General Findings Lipoaspirate axillary: 50 cc / side (100cc total) Lipoaspirate bilateral thighs: 2,050 cc Description of Procedure Here for the above procedures. Preoperatively risks, benefits, alternatives were discussed again today in extensive detail. I want to be very realistic about the risks involved as well as expectations. Made sure answered all of their questions to satisfaction. They voiced a clear understanding. Consent obtained. Patient was marked in the preoperative holding area with their verification. Taken to the operating placed supine on the operating table. Anesthesia was provided by anesthesiology. Prepped and draped in a standard sterile fashion. Surgical time-out was taken. Anterior axilla Stab incisions were made and I tumesced with a tumescent solution. Once adequate time for hemostasis suction lipectomy was with a 4 mm basket cannula based on S.A.F.E. technique. This was completed based on preoperative planning, intraoperative observation, and rolling pinch test which was in full agreement. Entry site closed with 5-0 plain gut suture. Abdomen Stab incisions were made and I tumesced with a tumescent solution. Once adequate time for hemostasis a 10 blade was used to excise the scar and this was tacked. I was able to pass a 5mm basket cannula through this incision to the gastric bypass scar and release it (no liposuction). Also utilized 18 gauge needle for subcision as needed. This was closed using a 2-0 Quill, 3-0 strata fix, running subcuticular 4-0 Monocryl, and tissue glue. Thighs Stab incisions were made and I tumesced with a tumescent solution. Once adequate time for hemostasis suction lipectomy was with a 4 mm basket cannula based on S.A.F.E. technique. This was completed based on preoperative planning, intraoperative observation, and rolling pinch test which was in full agreement. I completely de-fatted the planned resection area and a strip avulsion technique was completed. Starting proximal to distal a 10 blade was used to excise the intervening skin and this was tacked as we proceed to ensure good closure. This was closed using a 2-0 Quill, 3-0 stratafix, running subcuticular 4-0 Monocryl. Groin extension closed with 3-0 Monocryl, 3-0 Chromic. Finally closure with tissue glue. Dressings were placed. Tolerated the procedure well. Taken to the PACU without difficulty. All instrument sponge counts were correct at the end of the case. Estimated Blood Loss 75 Drains No Packing No Pathology None sent Complications No immediate complications Condition Stable Disposition PACU
--- NOTE | 2025-01-20 10:46 | WPDANESEPPF ---
Anes - Initial Pre Proc Eval Procedure: Operation Date: 01/20/25 10:30 Proposed Procedures p Bilateral Medial Thigh Lift with Liposuction - Seth Shea MD s Bilateral Axillary Liposuction, - Seth Shea MD s Scar Repair Lower Abdomen - Seth Shea MD Date/Time: 01/20/25 10:46 Surgeon: Seth Shea MD Pre Op Diagnosis: Skin Laxity, Hx of Abdominoplasty Patient Data Age: 49 Gender: F Height: 1.6 m Weight: 84.5 kg Last Vital Signs Temp 36.9 C 01/20/25 09:00 Pulse 80 01/20/25 09:00 Resp 16 01/20/25 09:00 BP 150/91 H 01/20/25 09:00 Pulse Ox 97 01/20/25 09:00 O2 Del Method Room Air 01/20/25 09:00 Allergies Allergy/AdvReac Type Severity Reaction Status Date / Time shellfish derived Allergy Intermediate Itching Verified 01/20/25 10:00 ioversol Allergy Unknown Hives Verified 01/20/25 10:00 Penicillins Allergy Unknown Unknown Verified 01/20/25 10:00 Sulfa (Sulfonamide Allergy Unknown Numbness Verified 01/20/25 10:00 Antibiotics) Home Medications ?Medication ?Instructions ?Recorded ?Confirmed ?Type cetirizine 10 mg tablet (Zyrtec) 10 mg PO DAILY 04/09/21 01/07/25 History cholecalciferol (vitamin D3) 25 25 mcg PO DAILY 04/09/21 01/07/25 History mcg (1,000 unit) chewable tablet (Vitamin D3) ferrous sulfate 325 mg (65 mg 325 mg PO DAILY 04/09/21 01/07/25 History iron) tablet (Iron (ferrous sulfate)) modafinil 200 mg tablet 200 mg PO BID 04/09/21 01/07/25 History vitamin B complex 1 tablet PO DAILY 04/09/21 01/07/25 History dextroamphetamine-amphetamine 20 20 mg PO DAILY 05/17/22 01/07/25 History mg tablet venlafaxine 75 mg capsule,extended 225 mg PO DAILY 08/28/23 01/20/25 History release 24 hr pseudoephedrine HCl 30 mg tablet 30 mg PO Q4-6H PRN Allergy Symptoms 12/08/23 01/07/25 History (Sudafed) omeprazole 20 mg capsule,delayed 20 mg PO DAILY 07/12/24 01/07/25 History release Laboratory Tests 01/20/25 09:04 Cotinine Negative Patient hx anesthesia problems: none Family hx anesthesia problems: none Results Review: All pre-operative results and documents have been reviewed as part of the pre-operative evaluation. PMFSH Past Medical History Medical History Obesity Narcolepsy Surgical History Surgical History S/P gastric sleeve procedure Family History Family History Grandparent Family history of thyroid disease Hypertension Family history of Alzheimer's disease Father Hypertension Other Carcinoma of colon Diabetes mellitus Family history of arthritis Family history of atrial fibrillation Family history of cardiovascular disease Family history of kidney disease Family history of lung disease Family history of mental disorder Family history of osteoporosis Social History Social History Years smoked: 5 Smoking status: Former smoker Tobacco type: cigarettes Smoking end date: 07/12/09 Alcohol intake: current Drinks per week: 6 Alcohol use details: A COUPLE GLASSES OF WINE A NIGHT Substance use: never Substance use type: does not use Living arrangements: with family Spiritual care concerns: No Anes - Eval Final PreProcedure Day of Procedure 01/20/25 10:46 Heart: regular rate and rhythm Lungs: clear to auscultation Airway: Mallampati scale class II Neurological: alert and oriented Last oral intake: >/= 8 hours ASA classification: III Emergent: no Anesthetic plan: proceed Anesthesia type and monitoring: general LMA and standard monitoring Results Review: All pre-operative results and documents have been reviewed as part of the pre-operative evaluation. Informed Consent: The patient's anesthetic plan and its attendant risks and benefits were discussed with the patient/family/POA. Questions were solicited and answers provided to the satisfaction of the patient/family/POA.
[2025-01-20] MEDS: SCOPOLAMINE 1 MG PATCH 1 PATCH TRANSDERM (10:48)
[2025-01-20] MEDS: ceFAZolin 2 GM in SODIUM CHLORIDE 0.9% IV 50 ML 100 ML IVPB (11:15)
[2025-01-20] MEDS: LACTATED RINGERS IRRIG 1,000 ML, LIDOCAINE 1% LOCAL INJ 50 ML, EPINEPHrine HCL INJ 1 MG... INFILTRATE (12:46)
[2025-01-20] MEDS: fentaNYL CITRATE INJ (*CRX) 100 MCG/2 ML VIAL 25 MCG IV PUSH ×3 (15:34→16:02)
[2025-01-20] MEDS: oxyCODONE HCL (*CRX) 5 MG TAB IR PO (17:00)
== END 2025-01-20 17:34 | disposition home or self-care (01) ==
PROVIDERS: PCP Internal Medicine; Visit Provider Surgery Plastic and Reconstructive Surgery
PROC: (CPT 15877; principal; 2025-01-20 10:30)
PROC: (CPT 15877; 2025-01-20 10:30)
PROC: (CPT 15877; 2025-01-20 10:30)
DX: Z41.1 Encounter for cosmetic surgery (principal); L57.4 Cutis laxa senilis; L90.5 Scar conditions and fibrosis of skin
CPT/HCPCS: 15877; 15879; 15832; 11401; 12031; 80307; J0690; A9270; J0166; J1100; J1171; J1200; J2003; J2250; J2405; J2704; J3010; J3290; J7120